=== PATIENT | female | born 1950 | race Caucasian/White ===

== ENCOUNTER 2016-09-24 13:05 | Day surgery (SDC) | payer MEDICARE, MEDICAID ==
[~2016-09-24] VITALS: Ht 167.6 cm; Wt 92.7 kg
[~2016-09-24 13:05] MED LIST: ACETAMINOPHEN500 M1 PO; ALBUTEROL2.5 MG/3 M INH; BAYER CHEWABLE81 MG PO; CARAFATE1 G PO; EZFE 200200 MG PO; FIBER THERAPY1368 GM PO; FISH OIL 1,0001 CA1 PO; FOLTX TABLET1 EACH PO; HUMALOG MIX 75/10 ML SC; HUMALOG MIX 75/10 ML SQ; HYDROCHLOROTH12.5 M1 PO; ISOSORBIDE MONO30 M1 PO; LANTUS INSULIN10 ML SC; MULTIPLE VITAMI1 TA1 PO; NITROSTAT0.4 MG SL; PEPCID40 MG PO; PLAVIX75 MG PO; POTASSIUM99 M1 PO; PRAVACHOL40 MG PO; PRILOSEC20 MG PO; PRINIVIL20 MG PO; SPIRIVA18 MCG INH; SYMBICORT 16010.2 GM INH
[2016-09-24] MEDS ORDERED: GABAPENTIN100 MG PO (13:29)
[2016-09-24] MEDS ORDERED: PHENERGAN25 M1 PO (13:30)
[2016-09-24] MEDS ORDERED: LASIX40 MG PO (13:30)
[2016-09-24] MEDS ORDERED: CHLOR-TRIMETON4 MG PO (13:32)
[2016-09-24] MEDS ORDERED: [UNRECOGNIZED DRUG - OTHER] PO (13:32)
[2016-09-24] MEDS ORDERED: KLONOPIN1 MG PO (13:33)
[2016-09-24] MEDS ORDERED: HYDROCODON-ACE1 EAC7 PO (13:34)
[2016-09-24 13:42] VITALS: BP 142/74; Ht 167.6 cm; Wt 92.7 kg
[2016-09-24 13:57] LABS: BASOPHILS 2.2 % (0.0-2.0); EOSINOPHILS 6.6 % (0-7); HEMATOCRIT 42.5 % (36.0-48.0); HEMOGLOBIN 13.7 g/dL (12-16); IMMATURE GRANULOCYTES 0.6 % (0-5); LYMPHOCYTES 31.3 % (15-50); MCH 30.1 pg (26.0-34.0); MCHC 32.2 g/dL (31.0-37.0); MCV 93.4 fL (80.0-100.0); MEAN PLATELET VOLUME 11.9 fL (7.4-10.4); MONOCYTES 11.2 % (2-11); NEUTROPHILS 48.1 % (40-80); RBC 4.55 10x6/uL (4.00-5.40); RDW 17.9 % (11.5-14.5); WBC 7.1 10x3/uL (4.8-10.8)
[2016-09-24 13:58] LABS: PLATELET COUNT 141 10x3/uL (130-400)
[2016-09-24 14:15] LABS: CALC OSMOLALITY 277 mosm/kg (275-300); CALCIUM 9.2 mg/dL (8.5-10.1); CARBON DIOXIDE 24.9 mmol/L (21.0-32.0); CHLORIDE - SERUM 104 mmol/L (98-107); CREATININE - SERUM 0.8 mg/dL (0.6-1.3); GLUCOSE 109 mg/dL (74-106); POTASSIUM - SERUM 3.8 mmol/L (3.5-5.1); SODIUM 139 mmol/L (136-145); UREA NITROGEN 9 mg/dL (7-18); eGFR NON AFRICAN AMERICAN 76 mL/min (90-120)
--- NOTE | 2016-09-24 15:00 | NUR ---
1430 BACK FROM EGD AWAKE AND HOB ELEVATED NO COS OF PAIN.
--- NOTE | 2016-09-24 15:02 | NUR ---
1430 [address]AK[address] IN FULL LIQUIDS. DR[address] REYES ROUNDED ON PATIENT.
--- NOTE | 2016-09-24 15:14 | NUR ---
151O TOLERATED FULL LIQUIDS, UP AND VOIDED WITH ASSISTANCE.
--- NOTE | 2016-09-24 15:35 | NUR ---
1532 IV DCD CATHETER INTACT. DISCHARGE INSTRUCTIONS GIVEN AND VERBALLY UNDERSTANDS, 1535 TO HOME VIA W/C WITH SPOUSE.
[2016-09-24 16:30] LABS: INR 1.06 (0.85-1.17); PROTIME 13.6 SECONDS (11.6-15.0)
--- NOTE | 2016-11-18 13:19 | OP ---
PATIENT NAME: KATHIA WILSON MEDICAL RECORD: [id number] :51 LOCATION:[facility] ADMISSION DATE: SURGEON: FARZANA REYES MD DATE OF OPERATION: 09/24/2016 EGD with Biopsy Report PROCEDURE: EGD with biopsy. SCOPE: An Olympus video gastroscope. MEDICATIONS: Per TIVA anesthesia. The patient received 120 mg of propofol for this procedure, O2 of 4 liters. INDICATION FOR THE PROCEDURE: Recent PET scan showing increased tumor in the distal esophageal area with increasing hypermetabolism extending over the distal few centimeters of the esophagus and into the GE junction. There is also the suggestion on this PET scan of a little more intraluminal thickening and nodularity in the upper portion of the area of abnormality which is also hypermetabolic. The patient is presenting today as there is concern for recurrent mass. She also has increased uptake in the celiac lymph nodes. 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 The patient agreed to chemotherapy, but deferred radiation and surgical intervention. Her oncologist is Dr. Torre who will receive a copy of this report as well as Dr. Marmolejo, to Dr. Lopez and her primary physician, Dr. Baker. FINDINGS: Informed consent was given. The patient was made comfortable with the above medications. After reaching an adequate level of sedation by slow IV push, the patient was placed on her left side. The endoscope was then advanced under direct visualization through the posterior pharyngeal area and advanced to the distal esophagus. In the mid esophageal area, a hemorrhagic mass was noted. A few very small biopsies were obtained. The patient does bleed very easily. She also had increased thickening and suggestion of a recurrent mass in the distal esophageal area, another set of biopsies were obtained. On entering the stomach, it was noted that moderate inflammation was noted throughout the stomach, but most pronounced at the antral area where biopsies were taken. No ulcers were appreciated. The duodenal bulb had inflammation. Biopsies were obtained. The wall was thickened as well as erythematous. The second portion of the duodenum had mild inflammation present. Biopsies were also taken in this area due to the history of diarrhea. The scope was then withdrawn. IMPRESSION: 1. Mild duodenitis in the second part of the duodenum, also with a history of diarrhea, biopsies obtained. 2. Duodenal bulb with some nodularity, increased erythema, edema and inflammation, biopsied. 3. Moderate enteritis. Biopsy obtained, looking for the presence of Helicobacter pylori. 4. Distal esophagus with increased erythema, edema, inflammation and what is felt to be the presence of increasing tumor growth, biopsied, some bleeding did occur during obtainment of the biopsies. OPERATIVE REPORT [id number] KATHIA WILSON 5. Mid esophageal area at 35 cm. An obvious mass is appreciated with shelf-like appearance. Biopsies obtained. This was hemorrhagic prior to biopsy. We watched this area carefully and the bleeding did appear to slow. PLAN: This information will be forwarded to Dr. Torre, Dr. Marmolejo, Dr. Lopez and Dr. Baker. It is fairly obvious that the patient does have recurrent tumor. We will place her on Carafate, which we will ask her to make into a slurry and she should take this 4 times a day. We will also provide a prescription for omeprazole at 20 mg in the morning and famotidine 20 mg at bedtime. No anti-inflammatory drugs please. TRANSINT:[id number] Voice Confirmation ID: [id number] DOCUMENT ID: [id number] FARZANA REYES MD at 1319 CC: ASTON MARMOLEJO MD, BETO TORRE MD, QUIN BAKER MD and TAZ,[id number] DICTATION DATE: 09/24/16 1420 DOG TRACK KENNEL MANAGER: 09/24/16 1854 [facility] 09/24/16 [id number] [place] [address]
== END 2016-09-24 15:35 | disposition home or self-care (01) ==
LOC: D.OPS 13:05
PROVIDERS: Anesthesiology
DX: C15.5 Malignant neoplasm of lower third of esophagus (principal); K22.70 Barrett's esophagus without dysplasia; K29.80 Duodenitis without bleeding; K52.9 Noninfective gastroenteritis and colitis, unspecified; K29.50 Unspecified chronic gastritis without bleeding

== ENCOUNTER 2017-02-09 08:06 | Day surgery (SDC) | payer MEDICARE, MEDICAID ==
[~2017-02-09] VITALS: Ht 167.6 cm; Wt 85.0 kg
--- NOTE | ~2017-02-09 | OP ---
PATIENT NAME: KATHIA WILSON MEDICAL RECORD: [id number] :52 LOCATION:[facility] ADMISSION DATE: SURGEON: RANDALL MOISE DO OPERATION DATE: 02/09/17 PROCEDURE: Esophagogastroduodenoscopy with biopsies. INDICATION: History of esophageal cancer, Porter's esophagus, dysphagia, pain in the esophagus. SCOPE: Olympus video gastroscope. MEDICATIONS: Propofol 150 milligrams IV per anesthesia. ESTIMATED BLOOD LOSS: Less than 2 mL. COMPLICATIONS: None. FINDINGS: Informed consent was given. The patient was made comfortable with the above medication. After reaching an adequate level of sedation by slow IV push, the patient was placed on her left side. The endoscope was then advanced under direct visualization through the mouth to the second portion of the duodenum. The upper and middle portions of the esophagus appeared normal. In the distal esophagus down to the GE junction, there was erythema and friability and likely esophageal adenocarcinoma tumor. The largest of this area started at approximately 37 cm from the incisors and extended down to approximately 40-41 cm. It invaded 25 to 50% of the circumference of the esophagus and encroached within the lumen approximately 50%. As stated above, it was friable. Two biopsies were taken, and a small amount of bleeding occurred. This did not require hemostasis and was stopping at the end of the procedure. The scope was advanced slightly further down into the esophagus, and there was another small focus at approximately 41 cm on the opposite wall. This site was probably about 6-8 mm in diameter and did not protrude into the lumen. The scope advanced into the stomach and retroflexed to view the cardia which did not appear to be involved. The fundus and body of the stomach appeared normal. The antrum and incisura appeared normal. The scope was advanced beyond the pylorus into the duodenum where the bulb and second portion of the duodenum appeared normal. The scope was withdrawn from the patient. The patient tolerated the procedure well, and there were no complications. IMPRESSIONS: 1. Increasing tumor burden of a previously diagnosed esophageal adenocarcinoma. 2. Dysphagia, secondary to this advanced tumor growth. PLAN/RECOMMENDATIONS: 1. Discharge home when recovery parameters are met. 2. Follow-up with oncology for further recommendations and planning. This adenocarcinoma has failed to respond adequately to chemotherapy alone. Radiation therapy should be reconsidered. Other palliative treatments that could be possible but would require a referral could include photodynamic therapy with radiation therapy or alone. 3. Until definitive therapy is undertaken, I would recommend eating more liquids and maintaining nutrition through supplemental diet such as protein shakes. If solids are to be eaten, they should be chewed thoroughly prior to swallowing. 4. Follow-up biopsy specimen results. 5. GI will be available for any assistance regarding further diagnostic workup or OPERATIVE REPORT [id number] KATHIA WILSON reevaluation of the esophageal adenocarcinoma. RANDALL MOISE DO CC: [id number] DICTATION DATE: 02/09/17 1300 FILM EDITOR SUPERVISOR: DM 02/09/17 1321 [facility] 02/09/17 [facility] [address] [place] [address]
[~2017-02-09 08:06] MED LIST changes: +CHLOR-TRIMETON4 MG PO; +GABAPENTIN100 MG PO; +HYDROCODON-ACE1 EAC7 PO; +KLONOPIN1 MG PO; +LASIX40 MG PO; +PHENERGAN25 M1 PO; +[UNRECOGNIZED DRUG - OTHER] PO
[2017-02-09 10:59] VITALS: BP 133/85; Ht 167.6 cm; Wt 85.0 kg
[2017-02-09 10:59] LABS: BASOPHILS 1.6 % (0-2); EOSINOPHILS 6.6 % (0-7); HEMATOCRIT 41.3 % (36.0-48.0); HEMOGLOBIN 13.2 g/dL (12-16); IMMATURE GRANULOCYTES 0.3 % (0-5); LYMPHOCYTES 35.5 % (15-50); MCH 30.8 pg (26.0-34.0); MCV 96.3 fL (80.0-100.0); MEAN PLATELET VOLUME 11.6 fL (7.4-10.4); MONOCYTES 8.4 % (2-11); NEUTROPHILS 47.6 % (40-80); RBC 4.29 10x6/uL (4.00-5.40); RDW 17.3 % (11.5-14.5); WBC 3.8 10x3/uL (4.8-10.8)
[2017-02-09 11:06] LABS: PLATELET COUNT 84 10x3/uL (130-400)
[2017-02-09 11:07] LABS: CALCIUM 9.2 mg/dL (8.5-10.1); CARBON DIOXIDE 27.8 mmol/L (21.0-32.0); CREATININE - SERUM 0.9 mg/dL (0.6-1.3); POTASSIUM - SERUM 3.8 mmol/L (3.5-5.1)
[2017-02-09 11:08] LABS: APTT 32.5 SECONDS (22.8-39.4); INR 1.07 (0.85-1.17); PROTIME 13.7 SECONDS (11.6-15.0)
[2017-02-09 11:32] LABS: PLATELET ESTIMATE DECREASED
--- NOTE | 2017-02-09 12:34 | NUR ---
1225 FULL LIQUID TRAY GIVEN
--- NOTE | 2017-02-09 13:04 | NUR ---
1250 DC IV CATHETER TIP INTACT VALENTINO WELL 1300 PT DC VIA WC ESCORTED OUT W/ DRIVING
== END 2017-02-09 13:00 | disposition home or self-care (01) ==
LOC: D.RAD 08:06 → D.OPS 08:06
PROVIDERS: Anesthesiology
DX: C15.9 Malignant neoplasm of esophagus, unspecified (principal); R13.10 Dysphagia, unspecified; E11.9 Type 2 diabetes mellitus without complications; I10 Essential (primary) hypertension; I25.10 Atherosclerotic heart disease of native coronary artery without angina pectoris; F17.200 Nicotine dependence, unspecified, uncomplicated; J44.9 Chronic obstructive pulmonary disease, unspecified; K21.9 Gastro-esophageal reflux disease without esophagitis; Z01.812 Encounter for preprocedural laboratory examination

== ENCOUNTER 2017-03-10 11:14 | Inpatient (IN) | payer MEDICARE, MEDICAID ==
[~2017-03-10] VITALS: Ht 167.6 cm; Wt 80.7 kg
--- NOTE | 2017-03-10 11:30 | NUR ---
PT REC'D TO ROOM VIA WC. ACCOMPANIED BY HOSPITAL STAFF AND FAMILY. AAOX4. RATING CURRENT PAIN ALL OVER 5/10. WILL REASSESS. PT WEARING SURGICAL MASK AND WHEN ASKED WHY STATES, "MY COUNTS ARE REALLY LOW." L CHEST PORT TO BE ACCESSED BY RN. REGULAR HEART RATE AND RHYTHM. LUNG SOUNDS CLEAR AND EQUAL BILAT. BOWEL SOUNDS HIGH PITCHED AND HYPOACTIVE AT ALL 4 QUADS. BLE DARKENED IN COLOR. PT STATES, "THATS BEEN LIKE THAT FOR A FEW YEARS." PT HAS SCRATCHES AND ABRASIONS TO BUE. STATES IT IS JUST FROM SCRATCHING. HX OBTAINED AND MED LIST UPDATED. BED LOW, CALL LIGHT IN REACH, FAMILY AT BEDSIDE, DENIES NEEDS. CPOC.
[2017-03-10 12:46] LABS: HEMATOCRIT 36.4 % (36.0-48.0); MCH 30.6 pg (26.0-34.0); MCV 92.9 fL (80.0-100.0); MEAN PLATELET VOLUME 11.2 fL (7.4-10.4); PLATELET COUNT 149 10x3/uL (130-400); RBC 3.92 10x6/uL (4.00-5.40); RDW 15.8 % (11.5-14.5); WBC 3.2 10x3/uL (4.8-10.8)
[2017-03-10 12:59] VITALS: BP 80/47
[2017-03-10 13:01] LABS: BASOPHILS 1 % (0-2); EOSINOPHILS 6 % (0-7); LYMPHOCYTES 64 % (15-50); MONOCYTES 3 % (2-11); NEUTROPHILS 26 % (40-80); PLATELET ESTIMATE NORMAL
[2017-03-10 13:13] LABS: ALBUMIN 2.9 g/dL (3.4-5.0); ANION GAP 10.3 mmol/L (8-16); BILIRUBIN - TOTAL 0.34 mg/dL (0.2-1.3); CALCIUM 9.1 mg/dL (8.5-10.1); CARBON DIOXIDE 26.7 mmol/L (21.0-32.0); CREATININE - SERUM 1.7 mg/dL (0.6-1.3); PROTEIN - SERUM 7.3 g/dL (6.4-8.2)
[2017-03-10 13:42] VITALS: BP 87/51
[2017-03-10 14:21] VITALS: BP 87/51; BMI 28.8
[2017-03-10 16:58] VITALS: BP 90/58
--- NOTE | 2017-03-10 19:45 | NUR ---
RECIEVED SHIFT REPORT. PT IS LYING IN BED. ALERT AND ORIENTED AND ABLE TO VERBALIZE NEEDS. IV IS PATENT AND FLUIDS ARE RUNNING PER ORDER. PT IS AMBULATORY BUT WAS INSTRUCTED TO CALL FOR ANY ASSISTANCE NEEDED. PT STATES PAIN IS 2/10. ISOLATION PRECAUTIONS IN PLACE. NO NEEDS ARE VERBALIZED AT THIS TIME. WILL CONTINUE TO MONITOR. SIDE RAILS ARE UP X 2. BED IS IN LOWEST POSITION. CALL LIGHT IS WITHIN REACH.
[2017-03-10 20:00] VITALS: BP 83/48
--- NOTE | 2017-03-10 22:26 | NUR ---
SHIFT ASSESSMENT COMPLETED. NIHGT MEDS GIVEN WITH NO PROBLEMS. SCHEDULED LANTUS HELD DUE TO PT STATING IF SHE TOOK IT HER BLOOD SUGAR WOULD DROP. OJNS=[id number]. PT C/O PAIN 10/03. ADMINISTERED PRESCRIBED PRN NORCO PER ORDER. NO FURTHER NEEDS. WILL MONITOR. SIDE RAILS X 2. BED LOW. CALL LIGHT IN REACH.
[2017-03-11] VITALS: BP 74/41
[2017-03-11 05:35] LABS: WBC 3.6 10x3/uL (4.8-10.8)
[2017-03-11 05:36] LABS: BASOPHILS 0.6 % (0-2); EOSINOPHILS 2.2 % (0-7); HEMATOCRIT 33.4 % (36.0-48.0); HEMOGLOBIN 10.9 g/dL (12-16); IMMATURE GRANULOCYTES 0.3 % (0-5); LYMPHOCYTES 37.5 % (15-50); MCH 30.4 pg (26.0-34.0); MCHC 32.6 g/dL (31.0-37.0); MCV 93.3 fL (80.0-100.0); MEAN PLATELET VOLUME 11.8 fL (7.4-10.4); MONOCYTES 8.5 % (2-11); NEUTROPHILS 50.9 % (40-80); PLATELET COUNT 138 10x3/uL (130-400); RBC 3.58 10x6/uL (4.00-5.40); RDW 15.7 % (11.5-14.5)
[2017-03-11 06:00] LABS: ALBUMIN 2.4 g/dL (3.4-5.0); ANION GAP 9.7 mmol/L (8-16); BILIRUBIN - TOTAL 0.25 mg/dL (0.2-1.3); CALCIUM 8.6 mg/dL (8.5-10.1); CARBON DIOXIDE 25.7 mmol/L (21.0-32.0); POTASSIUM - SERUM 4.4 mmol/L (3.5-5.1); PROTEIN - SERUM 6.2 g/dL (6.4-8.2)
[2017-03-11 06:01] LABS: CREATININE - SERUM 1.2 mg/dL (0.6-1.3)
--- NOTE | 2017-03-11 07:40 | NUR ---
PT AOX4 RESP EVEN AND NONLABORED PT DENIES NEEDS AT THIS TIME IV TO LEFT SUBCLAVIAN PORT PATENT AND INTACT AT THIS TIME SRX2 BED AT LOWEST SETTING CALL LIGHT WILL CONTINUE TO MONITOR
--- NOTE | 2017-03-11 08:00 | NUR ---
PT AOX4 RESP EVEN AND NONLABORED PT DENIES NEEDS AT THIS TIME IV TO LEFT SUBCLAVIAN PORT PATENT AND INTACT AT THIS TIME SRX2 BED AT LOWEST SETTING CALL LIGHT WITHIN REACH WILL CONTINUE TO MONITOR
[2017-03-11 09:52] VITALS: BP 99/58
[2017-03-11 11:11] VITALS: Ht 167.6 cm; Wt 80.7 kg
[2017-03-11 13:07] VITALS: BP 89/59
[2017-03-11 16:41] VITALS: BP 82/42
[2017-03-11 19:00] VITALS: BP 94/48
--- NOTE | 2017-03-11 21:02 | NUR ---
SHIFT ASSESSMENT COMPLETED. NIGHT MEDS GIVEN WITH NO PROBLEMS. SCHEDULED LANTUS HELD FOR [id number] PER PT REQUEST. NO NEEDS ARE VOICED. WILL MONITOR. SIDE RAILS X 2. BED LOW. CALL LIGHT IN REACH.
[2017-03-12] VITALS: BP 98/57
[2017-03-12 04:00] VITALS: BP 105/63
[2017-03-12 05:51] LABS: BASOPHILS 0.3 % (0-2); EOSINOPHILS 2.4 % (0-7); HEMATOCRIT 34.4 % (36.0-48.0); HEMOGLOBIN 11.1 g/dL (12-16); IMMATURE GRANULOCYTES 1.9 % (0-5); LYMPHOCYTES 28.2 % (15-50); MCH 29.9 pg (26.0-34.0); MCHC 32.3 g/dL (31.0-37.0); MCV 92.7 fL (80.0-100.0); MEAN PLATELET VOLUME 12.1 fL (7.4-10.4); MONOCYTES 10.3 % (2-11); NEUTROPHILS 56.9 % (40-80); PLATELET COUNT 129 10x3/uL (130-400); RBC 3.71 10x6/uL (4.00-5.40)
[2017-03-12 05:56] LABS: WBC 5.8 10x3/uL (4.8-10.8)
[2017-03-12 06:09] LABS: ALBUMIN 2.5 g/dL (3.4-5.0); ANION GAP 11.4 mmol/L (8-16); BILIRUBIN - TOTAL 0.29 mg/dL (0.2-1.3); CALCIUM 8.8 mg/dL (8.5-10.1); CARBON DIOXIDE 24.6 mmol/L (21.0-32.0); CREATININE - SERUM 1.1 mg/dL (0.6-1.3); PROTEIN - SERUM 6.3 g/dL (6.4-8.2)
--- NOTE | 2017-03-12 07:42 | NUR ---
PT AOX4 RESP EVEN AND NONLABORED IV TO LEFT SUBCLAVIAN PATENT AND INTACT PT DENIES NEEDS AT THIS TIME SRX2 BED AT LOWEST SETTING CALL LIGHT WITHIN REACH WILL CONTINUE TO MONITOR AT BEDSIDE
[2017-03-12 08:00] VITALS: BP 101/69
--- NOTE | 2017-03-12 11:36 | NUR ---
pt did not allow port dressing change yesterday-"did not feel good"- allowed to be changed today per policy. dated and initaled.
--- NOTE | 2017-03-12 13:01 | NUR ---
PT LEFT AGAINST MEDICAL ADVICE AT THIS TIME WITH
== END 2017-03-12 13:02 | disposition left against medical advice (07) | DRG 809 ==
LOC: D.MS 11:14
PROVIDERS: ADMIT Internal Medicine Hematology & Oncology
DX: D70.3 Neutropenia due to infection (principal); K52.1 Toxic gastroenteritis and colitis; C16.0 Malignant neoplasm of cardia; K56.7 Ileus, unspecified; K12.31 Oral mucositis (ulcerative) due to antineoplastic therapy; T45.1X5A Adverse effect of antineoplastic and immunosuppressive drugs, initial encounter; I95.9 Hypotension, unspecified; E86.0 Dehydration; E11.40 Type 2 diabetes mellitus with diabetic neuropathy, unspecified; Z79.4 Long term (current) use of insulin; E11.51 Type 2 diabetes mellitus with diabetic peripheral angiopathy without gangrene; F51.04 Psychophysiologic insomnia; F32.9 Major depressive disorder, single episode, unspecified

== ENCOUNTER → 2017-06-04 10:27 | Outpatient (CLI) | payer MEDICARE, MEDICAID ==
[2017-03-11 11:11] VITALS: BMI 28.7
== END | disposition home or self-care (01) ==
LOC: D.RAD 10:27
DX: C15.5 Malignant neoplasm of lower third of esophagus (principal)

== ENCOUNTER 2017-10-06 07:20 | Outpatient (CLI) | payer MEDICARE, MEDICAID ==
[~2017-10-06] VITALS: Ht 167.6 cm; Wt 77.3 kg
--- NOTE | ~2017-10-06 | HEMODYNAMI ---
PATIENT:KATHIA WILSON MEDICAL RECORD: [id number] : 52 LOCATION:[facility] ADMISSION DATE: 10/06/17 Generatedon:10/06/20179:33 Patient name: KATHIA WILSON Patient #: [id number] SSN: [id number] : 1950 Date of study: 10/06/2017 Page: Of Hemodynamic Procedure Report Patient Data Patient Demographics Procedure consent was obtained First Name: KATHIA Gender: Female Last Name: KATIE : 1950 [facility] Initial: J Age: 67 year(s) Patient #: [id number] Race: SSN: [id number] Additional ID: [id number] Contact details Address: [address] [place] [address] State: [place] City: [place] Zip code: [address] Admission Admission Data Admission Date: 10/06/2017 Admission Time: 7:20 Arrival Date: 10/06/2017 Arrival Time: 8:00 Admit Source: Other Insurance Payor: Medicare Height (in.): 66 BSA: 1.89 (m2) Height (cm.): 167.64 BMI: 28.41 (kg/m2) Weight (lbs.): 176 Weight (kg.): 79.83 Procedure Procedure Types Cath Procedure Diagnostic Procedure [facility] w/Coronaries Sedation Charges Moderate Sedation up to 15 minutes PCI Procedure Coronary Stent Coronary Stent Initial Procedure Description Procedure Date Procedure Date: 10/06/2017 Procedure Start Time: 9:16 Procedure End Time: 9:32 Procedure Staff Name Function Genaro Lopez MD Performing Physician Nimco Gallegos RT Monitor Gretchen Rod RT Scrub Lindsey Krishnamurthy RN Nurse Procedure Data Cath Procedure Fluoroscopy Diagnostic fluoroscopy Total fluoroscopy Time: 3.8 time: 3.8 min min Diagnostic fluoroscopy Total fluoroscopy dose: 834 dose: 834 mGy mGy Contrast Material Contrast Material Type Amount (ml) Isovue 300 68 Entry Location Entry Primary Successful Side Size Upsize Upsize Entry Closure Succes sful Closure Location (Fr) 1 (Fr) 2 (Fr) Remarks Device Remarks Femoral Right 5 Fr 6 Fr Exoseal artery Short Estimated blood loss: 5 ml Diagnostic catheters Device Type Used For End Catheter Placement MULTIPACK Pigtail 5 Fr LV Angiography catheter MULTIPACK JL 4.0 5Fr Left Coronary catheter Angiography MULTIPACK 3DRC 5Fr Right Coronary catheter Angiography Procedure Complications No complications Procedure Medications Medication Administration Route Dosage Oxygen NC 2 l/min Lidocaine 2% added to field 20 Heparin Flush Bag added to field 2 bags (1000units/500ml NS) 0.9% NaCl I.V. 100 ml/hr Versed I.V. 1 mg Fentanyl I.V. 50 mcg Versed I.V. 1 mg Fentanyl I.V. 50 mcg Heparin Bolus I.V. 4000 units Integrilin (Bolus I.V. 6.8 ml 2mg/ml) Versed I.V. 1 mg Plavix P.O. 600 mg Hemodynamics Rest BSA: 1.89 (m2) O2 Consumption: Estimated: 174.66 (ml/min) O2 Consumption indexed : Estimated:92.41 (ml/min/m) Heart Rate: 68 (bpm) Pressure Samples Time Site Value (mmHg) Purpose Heart Use Rate(bpm) 9:18 LV 93/6,25 Snapshot 69 Snapshots Pre Cath Intra NCS Post Cath Vital Signs Time Heart Resp SPO2 etCO2 NIBP (mmHg) Rhythm Pain Sedation Rate (ipm) (%) (mmHg) Status Level (bpm) 8:59:41 64 16 100 27.9 122/69(108) NSR 0 (11) 10(A) , No pain 9:03:51 63 20 100 34.7 104/68(86) NSR 0 (11) 10(A) , No pain 9:07:57 65 20 99 21.1 105/63(91) NSR 0 (11) 10(A) , No pain 9:12:02 69 13 96 11.3 101/62(76) NSR 0 (11) 9(A) , No pain 9:16:08 70 14 97 19.6 90/58(67) NSR 0 (11) 9(A) , No pain 9:20:08 72 15 95 30.9 95/65(82) NSR 0 (11) 9(A) , No pain 9:24:10 73 14 94 27.9 95/62(78) NSR 0 (11) 9(A) , No pain 9:28:13 70 14 97 0 102/61(78) NSR 0 (11) 10(A) , No pain 9:32:19 73 16 97 20.3 98/58(84) NSR 0 (11) 10(A) , No pain Medications Time Medication Route Dose Verified Delivered Reason Notes Effectiveness by by 9:00:54 Oxygen NC 2 Genaro Buffie used for l/min John Krishnamurthy RN procedure 9:01:01 Lidocaine 2% added 20ml Genaro Genaro for local to vial John Lopez MD anesthetic field 9:01:10 Heparin Flush added 2 Genaro Genaro used for Bag to bags John Lopez MD procedure (1000units/500ml field NS) 9:01:19 0.9% NaCl I.V. 100 Genaro Buffie Per physician ml/hr John Krishnamurthy RN 9:07:44 Versed I.V. 1 mg Genaro Portillo for sedation John Krishnamurthy RN 9:07:50 Fentanyl I.V. 50 Genaro Portillo for sedation mcg John Krishnamurthy RN 9:19:07 Versed I.V. 1 mg Genaro Alanisie for sedation John Krishnamurthy RN 9:19:10 Fentanyl I.V. 50 Genaro Alanisie for sedation mcg John Krishnamurthy RN 9:22:12 Heparin Bolus I.V. 4000 Genaro Alanisie for verifie d units John Krishnamurthy RN anticoagulation with dr lopez 9:24:22 Integrilin I.V. 6.8 Genaro Portillo for wasted (Bolus 2mg/ml) ml John Krishnamurthy RN antiplatelet 3.2 ml therapy of vial 9:27:25 Versed I.V. 1 mg Genaro Alanisie for sedation John Krishnamurthy RN 9:32:39 Plavix P.O. 600 Genaro Portillo for mg John Krishnamurthy RN antiplatelet therapy Procedure Log Time Note 8:31:24 Informed consent obtained and on chart 8:31:26 Admit Source: Other 8:31:56 Diagnostic Cath status Elective 8:31:57 Time tracking: Regular hours 8:32:00 Plan of Care:Hemodynamics will remain stable., Cardiac rhythm will remain stable., Comfort level will be maintained., Respiratory function will remain adequate., Patient/ family verbilizes understanding of procedure., Procedure tolerated without complication., Recovers from procedure without complications.. 8:34:29 H&P Date Dictated: 09/14/2017 Within 30 days and on chart., H&P Addendum completed by physician on day of procedure. (MUST COMPLETE FOR ALL OUTPATIENTS). 8:44:58 Gretchen Marcel RT(R) sent for patient. Start room use. 8:50:47 Patient received from Pre/Post Procedure Room to CCL 2 Alert and oriented. Tansferred to table in Supine position. 8:50:50 Warm blankets applied, and tita hugger turned on for patient comfort. 8:50:51 Correct patient and procedure confirmed by team. 8:50:52 ECG and BP/O2 sat monitors applied to patient. 8:58:35 Baseline sample Acquired. 8:58:35 Vital chart was started 8:58:49 Baseline sample Acquired. 8:58:54 Rhythm: sinus rhythm 8:58:55 Full Disclosure recording started 8:58:57 Pre-procedure instructions explained to patient. 8:58:57 Pre-op teaching completed and patient verbalized understanding. 8:58:58 Family in waiting room. 8:59:00 Patient NPO since Midnight. 8:59:02 Is the patient allergic to Iodine/contrast media? No. 8:59:03 Was the patient premedicated? No 8:59:50 Is patient on blood thinner?No 8:59:53 Patient diabetic? Yes. 8:59:54 If diabetic: On Metformin? No 8:59:58 Previous problem with sedation/anesthesia? No ? 9:00:09 Snore? Yes 9:00:10 Sleep apnea? Yes 9:00:11 Deviated septum? No 9:00:19 Opens mouth fully? Yes 9:00:19 Sticks out tongue? Yes 9:00:33 Airway obstruction? Yes copd, asthma, emphysema 9:00:42 Dentures? Yes out 9:00:54 Oxygen 2 l/min NC was administered by Lindsey Krishnamurthy RN; used for procedure; 9:00:54 Pre procedure: right dorsailis pedis pulse 1+ Palpable, but thready & weak; easily obliterated 9:00:55 Pre procedure: left dorsailis pedis pulse 1+ Palpable, but thready & weak; easily obliterated 9:00:57 Patient pain scale 0/10 ?. 9:01:01 Lidocaine 2% 20ml vial added to field was administered by Genaro Lopez MD; for local anesthetic; 9:01:03 IV patent on arrival in left forearm with 0.9% NaCl at [facility]. 9:01:06 Lab results completed and on chart. 9:01:10 Heparin Flush Bag (1000units/500ml NS) 2 bags added to field was administered by Genaro Lopez MD; used for procedure; 9:01:11 Right groin area was prepped with chlora-prep and draped in sterile fashion 9::13 Alarms reviewed by R. N. 9::13 Sharps counted by scrub and verified by R.N. 9:01:19 0.9% NaCl 100 ml/hr I.V. was administered by Lindsey Krishnamurthy RN; Per physician; 9:06:33 Arrival Date: 10/06/2017 8:00:00 AM 9:06:45 Insurance Payor : Medicare 9:06:51 Patient Height : 66 inches 9:06:56 Patient Weight : 176 lbs 9:06:57 Physician arrived 9:06:58 --------ALL STOP TIME OUT------ 9:06:58 Final Timeout: patient, procedure, and site verified with staff and physician. All members of the team are in agreement. 9:07:00 Right groin site verified by team. 9:07:03 Physical assessment completed. ASA score P 2 - A patient with mild systemic disease as per Genaro Lopez MD. 9:07:06 Sedation plan: IV Moderate Sedation Medication:Versed, Fentanyl 9:07:13 Use device set Femoral Dx 9:07:14 ACIST Syringe (95396) opened to sterile field. 9:07:15 Bag Decanter (2002) opened to sterile field. 9:07:15 Medline Cath Pack ([id number]) opened to sterile field. 9:07:16 SHEATH 5FR [place] (YCF779) opened to sterile field. 9:07:16 DIAGNOSTIC WIRE .035 260cm J wire (108061) opened to sterile field. 9:07:17 ACIST Hand Control (02817) opened to sterile field. 9:07:18 ACIST Manifold (82162) opened to sterile field. 9:07:18 DIAGNOSTIC Multipack 5Fr catheter set ([id number]) opened to sterile field. 9:07:19 Tegaderm 4 x 4 (1626W) opened to sterile field. 9:07:44 Versed 1 mg I.V. was administered by Lindsey Krishnamurthy RN; for sedation; 9:07:50 Fentanyl 50 mcg I.V. was administered by Lindsey Krishnamurthy RN; for sedation; 9:16:41 Procedure started. 9:16:44 Local anesthetic to right femoral artery with Lidocaine 2% by Genaro Lopez MD.INITIAL ACCESS ONLY 9:17:02 A 5 Fr sheath was inserted into the Right Femoral artery 9:17:15 Zero performed for pressure channel P1 9:17:30 A MULTIPACK Pigtail 5 Fr catheter was advanced over the wire and used for LV Angiography. 9:18:28 LV hemodynamics recorded. 9:18:29 LV gram done using DAILY 9:18:35 Injector settings: Ml/sec: 5, Volume: 15, 9:19:07 Versed 1 mg I.V. was administered by Lindsey Krishnamurthy RN; for sedation; 9:19:10 Fentanyl 50 mcg I.V. was administered by Lindsey Krishnamurthy RN; for sedation; 9:19:11 EF : 55 % 9:19:14 Catheter removed. 9:19:19 A MULTIPACK JL 4.0 5Fr catheter was advanced over the wire and used for Left Coronary Angiography. 9:20:12 LCA angiography performed. 9:20:15 Injector settings: Ml/sec: 3, Volume: 6, 9:20:44 Catheter removed. 9:20:48 A MULTIPACK 3DRC 5Fr catheter was advanced over the wire and used for Right Coronary Angiography. 9:21:33 RCA angiography performed. 9:21:58 Injector settings: Ml/sec: 3, Volume: 6, 9:22:00 Catheter removed. 9:22:02 Proceeding to intervention. 9:22:03 Sheath upsized to a 6 Fr Short. 9:22:04 6 Fr xblad 3.5 guide catheter was inserted over the wire 9:22:12 Heparin Bolus 4000 units I.V. was administered by Lindsey Krishnamurthy RN; for anticoagulation; verified with dr lopez 9::47 SHEATH 6FR [place] (COU107) opened to sterile field. 9:22:48 INFLATOR Merit Rgpak (FI9391) opened to sterile field. 9:22:48 CHOICE PT Extra Support 182cm wire ([id number]) opened to sterile field. 9:23:53 GUIDE 6FR XBLAD 3.5 catheter ([id number]) opened to sterile field. 9:24:22 Integrilin (Bolus 2mg/ml) 6.8 ml I.V. was administered by Lindsey Krishnamurthy RN; for antiplatelet therapy; wasted 3.2 ml of vial 9:25:55 Inflation Number: 1 A INTEGRITY RX 3.5 x 12 stent ([id number]) was prepped and advanced across the Mid LAD. The stent was deployed at 21 DEMETRIUS for 0:10 (min:sec). 9:26:21 Inflation number: 2 The stent balloon was then re-inflated across the Mid LAD to 23 DEMETRIUS for 0:10 (min:sec). 9:27:12 Stent catheter was removed intact over wire. 9:27:25 Versed 1 mg I.V. was administered by Lindsey Krishnamurthy RN; for sedation; 9:27:59 Inflation number: 3 A NC EUPHORA 3.5 x 8 balloon ([id number]) was prepped and advanced across the Mid LAD, then inflated to 23 DEMETRIUS for 0:10 (min:sec). 9:28:57 Balloon removed over the wire. 9:29:41 Inflation number: 4 A NC EUPHORA 4.0 x 12 balloon ([id number]) was prepped and advanced across the Mid LAD, then inflated to 23 DEMETRIUS for 0:10 (min:sec). 9:30:11 Balloon removed over the wire. 9:30:12 Wire removed. 9:30:13 Guide catheter removed. 9:30:24 EXOSEAL 6Fr (EX600) opened to sterile field. 9:30:35 Sheath removed intact; hemostasis achieved with Exoseal to the Right Femoral artery. 9:30:37 Procedure ended.(Physican Out) :31:23 Fluoroscopy time 03.80 minutes. :31:27 Fluoroscopy dose: 834 mGy 9:31:27 Flurop Dose total: 834 9:31:31 Contrast amount:Isovue 300 68ml. 9:31:32 Sharps counted by scrub and verified by R.N. 9:31:34 Insertion/operative site no bleeding no hematoma. 9:31:36 Post-op/insertion site Right Femoral artery dressed using a 4 x 4 and Tegaderm. 9:31:39 Post right femoral artery:stable 9:31:41 Post Procedure Pulses reassessed and unchanged 9:31:43 Post procedure rhythm: unchanged. 9:31:45 Estimated blood loss: 5 ml 9:31:47 Post procedure instruction explained to patient.Patient verbalizes understanding. 9:31:47 Patient needs reinforcement of post procedure teaching. 9:32:12 Procedure type changed to Cath procedure, Diagnostic procedure, LHC, LHC w/Coronaries, Sedation Charges, Moderate Sedation up to 15 minutes, PCI procedure, Coronary Stent, Coronary Stent Initial 9:32:13 Procedure and supply charges have been captured, reviewed, submitted and are correct. 9:32:17 Procedure Complication : No complications 9:32:19 Vital chart was stopped 9:32:20 See physician's report for complete and final results. 9:32:21 Report given to Pre/Post Procedure Room. 9:32:24 Patient transfered to Pre/Post Procedure Room with Stretcher. 9:32:27 Procedure ended. 9:32:27 Full Disclosure recording stopped 9:32:35 ACC-PCI Only Patient was given prescriptions, or instructed by Geanro Lopez MD to start/continue the following medications upon discharge: Plavix 9:32:36 End room use (Document Last) 9:32:39 Plavix 600 mg P.O. was administered by Lindsey Krishnamurthy RN; for antiplatelet therapy; Intervention Summary Intervention Notes Time ActionType Lesion and Equipment Action# Pressure Duration Attributes Used 9:25:55 Place stent Mid LAD INTEGRITY RX 1 21 00:10 3.5 x 12 stent ([id number]) 9:26:21 Reinflate Mid LAD INTEGRITY RX 2 23 00:10 stent 3.5 x 12 balloon stent ([id number]) 9:27:59 Inflate Mid LAD NC EUPHORA 3 23 00:10 balloon 3.5 x 8 balloon ([id number]) 9:29:41 Inflate Mid LAD NC EUPHORA 4 23 00:10 balloon 4.0 x 12 balloon ([id number]) Device Usage Item Name Manufacture Quantity Catalog Number Hospital Part Current Mini mal Lot# / Charge Number Stock Stock Serial# Code ACIST Acist 1 27799 559198 660076 794489 20 Syringe Medical (06444) Systems Inc Bag Decanter Microtek 1 2001S 558357 06258 075845 5 (2001S) Medical Inc. Medline Cath Cardinal 1 [id number] 171919 10741 263707 5 Pack Health ([id number]) SHEATH 5FR Terumo 1 EXX952 385538 930983 293109 40 [place] (JJW766) DIAGNOSTIC St Shaheed 1 339626 723685 888527 651294 30 WIRE .035 260cm J wire (319950) ACIST Hand Acist 1 47373 658753 632276 971889 5 Control Medical (94936) Systems Inc ACIST Acist 1 28819 590076 155191 573044 5 Manifold Medical (84316) Systems Inc DIAGNOSTIC Cardinal 1 LW6436 955698 12948 896733 30 Multipack Health 5Fr catheter set (LI2084) Tegaderm 4 x 3M 1 1626W 107871 936292 080437 5 4 (1626W) MULTIPACK Cardinal 1 753085 5 Pigtail 5 Fr Health catheter MULTIPACK JL Cardinal 1 933373 5 4.0 5Fr Health catheter MULTIPACK Cardinal 1 710700 5 3DRC 5Fr Health catheter SHEATH 6FR Terumo 1 MLW385 617048 806150 586618 40 [place] (IGD227) INFLATOR [place] [address] KE8105 888676 477199 717489 [address] [facility] (PG2068) CHOICE PT Valmy 1 [id number] 799942 333784 752621 5 Extra Scientific Support 182cm wire (9348273P7) GUIDE 6FR Cardinal 1 [id number] 186541 501735 606720 10 XBLAD 3.5 Health catheter (99388966) INTEGRITY RX Medtronic 1 [id number] 467427 875691 717042 5 [id number] 3.5 x 12 stent ([id number]) NC EUPHORA Medtronic 1 [id number] 634090 873399 736695 1 [id number] 3.5 x 8 balloon ([id number]) NC EUPHORA Medtronic 1 [id number] 193656 291834 580280 1 [id number] 4.0 x 12 balloon ([id number]) EXOSEAL 6Fr Cardinal 1 EX600 324107 861715 419510 10 (EX600) Health Signature Audit [place] Stage Time Signature Unsigned Intra-Procedure 10/06/2017 Gretchen Marcel 9:33:46 AM RT(R) Signatures Monitor : Nimco Gallegos Signature : RT Date : Time : [place] [address] [place] [address]
--- NOTE | ~2017-10-06 | OP ---
PATIENT NAME: KATHIA WILSON MEDICAL RECORD: [id number] :52 LOCATION:D.CAT ADMISSION DATE: SURGEON: TOSIN MCGHEE MD DATE OF OPERATION: 10/06/2017 PROCEDURES: 1. PTCA stent LAD. 2. Left heart catheterization. 3. Selective coronary angiography. 4. Left ventriculogram. INDICATION: Angina and coronary artery disease. PROCEDURE IN DETAIL: After informed consent was obtained and after a detailed explanation of the risks, benefits as well as alternative therapies, the patient elected to proceed with angiogram and angioplasty. The right femoral area was prepped and draped in normal sterile fashion. Right femoral artery was cannulated via modified Seldinger technique with placement of 6-[place] Zealander sheath. All catheters exchanged through this sheath. FINDINGS: Left ventriculogram was performed in standard 30-degree DAILY view and reveals good cardiac wall motion throughout all segments. Overall ejection fraction is estimated at 55% to 60%. SELECTIVE CORONARY ANGIOGRAPHY: 1. Left main is with no significant angiographic disease. 2. Left anterior descending has 80% stenosis in the mid vessel, it is heavily calcified. 3. Left circumflex has moderate irregularities, but no flow-limiting stenosis. 4. Right coronary artery has moderate irregularities, but no flow-limiting stenosis. PTCA STENT OF THE LAD: The stent used was a 3.5 x 12 mm Integrity. Post-stent dilatation made with 4.0 high pressure balloon to 23 atmospheres. Result was 0% residual stenosis. OVERALL IMPRESSION: Successful percutaneous transluminal coronary angioplasty stent of the left anterior descending going from 80% initial stenosis to 0% residual stenosis. TRANSINT:[id number] Voice Confirmation ID: [id number] DOCUMENT ID: [id number] TOSIN MCGHEE MD at 1202 CC: [id number] DICTATION DATE: 10/06/17 0939 TRAINMAN: 10/06/17 1006 DEP CLI 10/06/[address] [address]
[2017-10-06] MEDS ORDERED: NOVOLIN 70/30 110 ML SC (07:48)
[2017-10-06 07:57] VITALS: BP 131/75; Ht 167.6 cm; Wt 77.3 kg
[2017-10-06 07:57] LABS: BASOPHILS 0.5 % (0-2); EOSINOPHILS 9.2 % (0-7); HEMATOCRIT 38.2 % (36.0-48.0); HEMOGLOBIN 12.1 g/dL (12-16); IMMATURE GRANULOCYTES 0.3 % (0-5); LYMPHOCYTES 19.8 % (15-50); MCH 27.9 pg (26.0-34.0); MCHC 31.7 g/dL (31.0-37.0); MCV 88.2 fL (80.0-100.0); MEAN PLATELET VOLUME 11.8 fL (7.4-10.4); MONOCYTES 7.8 % (2-11); NEUTROPHILS 62.4 % (40-80); RBC 4.33 10x6/uL (4.00-5.40); RDW 17.4 % (11.5-14.5); WBC 9.8 10x3/uL (4.8-10.8)
[2017-10-06 07:58] LABS: PLATELET COUNT 202 10x3/uL (130-400)
[2017-10-06 08:52] LABS: ANION GAP 11.9 mmol/L (8-16); CALCIUM 9.5 mg/dL (8.5-10.1); CARBON DIOXIDE 28.6 mmol/L (21.0-32.0); CREATININE - SERUM 0.9 mg/dL (0.6-1.3); POTASSIUM - SERUM 3.5 mmol/L (3.5-5.1)
[2017-10-06] MEDS ORDERED: PLAVIX75 MG PO (09:56)
== END 2017-10-06 13:45 | disposition home or self-care (01) ==
LOC: D.CATH 07:20
PROVIDERS: Internal Medicine Interventional Cardiology
DX: I25.119 Atherosclerotic heart disease of native coronary artery with unspecified angina pectoris (principal); R94.30 Abnormal result of cardiovascular function study, unspecified; R06.02 Shortness of breath; F17.200 Nicotine dependence, unspecified, uncomplicated; Z01.812 Encounter for preprocedural laboratory examination

== ENCOUNTER 2017-12-14 09:42 | Inpatient (IN) | payer MEDICARE ==
[~2017-12-14] VITALS: Ht 167.6 cm; Wt 76.6 kg
--- NOTE | ~2017-12-14 | EC ---
PATIENT:KATHIA WILSON DATE OF SERVICE: 12/14/17 SEX: F MEDICAL RECORD: [id number] DATE OF : 52 LOCATION:D. D.212 AGE OF PATIENT: 67 ADMISSION DATE: 12/14/17 REFERRING PHYSICIAN: INTERPRETING PHYSICIAN: TOSIN MCGHEE MD ECHOCARDIOGRAM REPORT ECHO CHARGES 4 ECHO COMPLETE Date: 12/15 CLINICAL DIAGNOSIS: V TACH POST CATH ECHOCARDIOGRAPHIC MEASUREMENTS (adult normal given) AC root (d.<3.7cm) 4.1 cm LV Septum d (<1.2 cm> 1.6 cm Valve Excursion 1.7 cm LV Septum (systole) 1.8 cm Left Atria (s.<4.0cm> 3.5 cm LVPW d(<1.2cm) 1.9 cm RV (d.<2.3cm) 4.0 cm LVPW (sytole) 2.2 cm LV diastole(<5.6CM) 4.8 cm MV E-F(>70mm/sec) cm LV systole 2.9 cm LVOT Diameter 1.9 cm MV exc.(>10mm) cm Est.ejection fraction (50-75%) % DOPPLER: LVIT cm/sec A 94.0 cm/sec E 96.0 cm/sec LA cm/sec RVSP 43 mmHg LVOT 143 cm/sec AOP1/2T m/s Asc. Ao 166 cm/sec RVOT 88 cm/sec RA cm/sec PA 142 cm/sec AV Gradient Peak 11.07mmHg AV Mean 5.37 mmHg AV Area 2.6 cm MV Gradient Peak 4.89 mmHg MV Mean 1.92 mmHg MV Area cm COMMENTS: Overlay Plastician: Cuong SUTHERLAND Parts Designer: 2 Dr. Hill TAPE# PACS Pericardial Effusion N DATE OF SERVICE: 12/15/2017 PROCEDURE: Echocardiogram. FINDINGS: 1. Left ventricular chamber size is within normal limits. Left ventricular systolic function is normal. Overall ejection fraction estimated at 60%. 2. Left atrium is within normal limits at 3.5 cm. Right atrium and right ventricle chamber sizes are mildly dilated. 3. Valvular structures have normal structure and motion. ECHOCARDIOGRAM REPORT [id number] KATHIA WILSON 4. Doppler interrogation reveals trace mitral regurgitation, mild tricuspid regurgitation, no other valvular insufficiency or stenosis and pulmonary systolic pressure is estimated 43 mmHg. 5. No evidence of pericardial effusion or left ventricular thrombus. TRANSINT:[id number] Voice Confirmation ID: [id number] DOCUMENT ID: [id number] TOSIN MCGHEE MD at 1218 CC: [id number] DICTATION DATE: 12/15/17 1557 PRESSURE CONTROL SUPERVISOR: 12/15/17 1613 DIS IN 12/16/17 [place] [id number] [place] [id number]
--- NOTE | ~2017-12-14 | HEMODYNAMI ---
PATIENT:KATHIA WILSON MEDICAL RECORD: [id number] : 52 [facility] [id number] ADMISSION DATE: 12/14/17 Generatedon:12/15/20177:56 Patient name: KATHIA WILSON Patient #: [id number] SSN: [id number] : 1950 Date of study: 12/15/2017 Page: Of Hemodynamic Procedure Report Patient Data Patient Demographics Procedure consent was obtained First Name: KATHIA Gender: Female Last Name: KATIE : 1950 [facility] Initial: J Age: 67 year(s) Patient #: [id number] Race: SSN: [id number] Additional ID: [id number] Contact details [address]: [address] [place] [address] State: [place] City: [place] Zip code: [address] Past Medical History Allergies Allergen Reaction Date Comments Reported Other allergy 12/15/2017 Welbutrin Admission Admission Data Admission Date: 12/14/2017 Admission Time: 12:04 Room #: 2120 Procedure Procedure Types Cath Procedure Diagnostic Procedure [facility] w/Coronaries Sedation Charges Moderate Sedation up to 15 minutes Procedure Description Procedure Date Procedure Date: 12/15/2017 Procedure Start Time: 7:34 Procedure End Time: 7:56 Procedure Staff Name Function Saran Hill MD Performing Physician Paige Velázquez RT Monitor Calvin Nelson RT Scrub Raghavendra Luis RN Nurse Procedure Data Cath Procedure Fluoroscopy Diagnostic fluoroscopy Total fluoroscopy Time: 1.4 time: 1.4 min min Diagnostic fluoroscopy Total fluoroscopy dose: 498 dose: 498 mGy mGy Contrast Material Contrast Material Type Amount (ml) Isovue 370 68 Entry Location Entry Primary Successful Side Size Upsize Upsize Entry Closure Succes sful Closure Location (Fr) 1 (Fr) 2 (Fr) Remarks Device Remarks Femoral Right 5 Fr Exoseal artery Estimated blood loss: 5 ml Diagnostic catheters Device Type Used For End Catheter Placement MULTIPACK JL 4.0 5Fr Left Coronary catheter Angiography MULTIPACK 3DRC 5Fr Right Coronary catheter Angiography MULTIPACK Pigtail 5 Fr LV Angiography catheter Procedure Complications No complications Procedure Medications Medication Administration Route Dosage 0.9% NaCl I.V. 100 ml/hr Oxygen etCO2 Nasal cannula 2 l/min Heparin Flush Bag added to field 2 bags (1000units/500ml NS) Lidocaine 2% added to field 20 Versed I.V. 1 mg Fentanyl I.V. 50 mcg Fentanyl I.V. 50 mcg Hemodynamics Rest Heart Rate: 70 (bpm) Pressure Samples Time Site Value (mmHg) Purpose Heart Use Rate(bpm) 7:43 LV 135/7,16 EDP 65 Snapshots Pre Cath Intra NCS Post Cath Vital Signs Time Heart Resp SPO2 etCO2 NIBP (mmHg) Rhythm Pain Sedation Rate (ipm) (%) (mmHg) Status Level (bpm) 7:20:42 72 21 99 0 142/81(117) NSR 0 (11) 10(A) , No pain 7:25:25 67 15 99 29.3 131/74(116) NSR 0 (11) 10(A) , No pain 7:30:06 64 19 99 25.5 116/69(96) NSR 0 (11) 10(A) , No pain 7:34:42 64 16 99 32.3 118/74(104) NSR 0 (11) 10(A) , No pain 7:39:19 68 18 100 34.5 123/75(104) NSR 0 (11) 10(A) , No pain 7:43:57 66 19 99 33 117/71(100) NSR 0 (11) 10(A) , No pain 7:48:34 66 19 99 34.5 114/70(98) NSR 0 (11) 10(A) , No pain 7:53:45 64 19 98 31.5 126/73(111) NSR 0 (11) 10(A) , No pain Medications Time Medication Route Dose Verified Delivered Reason Notes Effe ctiveness by by 7:20:52 0.9% NaCl I.V. 100 Raghavendra Raghavendra Per ml/hr Janelle Luis physician RN RN 7:21:02 Oxygen etCO2 2 Raghavendra Raghavendra Per Nasal l/min Janelle Luis physician cannula RN RN 7:21:13 Heparin Flush added 2 Raghavendra Raghavendra used for Bag to bags Janelle Luis procedure (1000units/500ml field RN RN NS) 7:21:23 Lidocaine 2% added 20ml Raghavendra Raghavendra for local to vial Lorigan Lorigan anesthetic field RN RN 7:31:11 Versed I.V. 1 mg Raghavendra Raghavendra for Lorigan Lorigan sedation RN RN 7:31:19 Fentanyl I.V. 50 Raghavendra Raghavendra for mcg Lorigan Lorigan sedation RN RN 7:34:16 Fentanyl I.V. 50 Raghavendra Raghavendra for mcg Lorigan Lorigan sedation RN rn heart Log Time Note 7:05:58 Raghavendra Luis RN sent for patient. Start room use. 7:06:19 Time tracking: Regular hours (M-F 7:00 - 5:00) 7:06:23 Plan of Care:Hemodynamics will remain stable., Cardiac rhythm will remain stable., Comfort level will be maintained., Respiratory function will remain adequate., Patient/ family verbilizes understanding of procedure., Procedure tolerated without complication., Recovers from procedure without complications.. 7:16:22 Patient received from Hoppit II to CCL 1 Alert and oriented. Tansferred to table in Supine position. 7:16:23 Warm blankets applied, and tita hugger turned on for patient comfort. 7:16:23 Correct patient and procedure confirmed by team. 7:16:25 Signed procedure consent form obtained from patient. 7:16:26 ECG and BP/O2 sat monitors applied to patient. 7:19:49 Vital chart was started 7:19:52 Rhythm: sinus rhythm 7:19:53 Full Disclosure recording started 7:20:52 0.9% NaCl 100 ml/hr I.V. was administered by Raghavendra Luis RN; Per physician; 7:21:02 Oxygen 2 l/min etCO2 Nasal cannula was administered by Raghavendra Luis RN; Per physician; 7:21:13 Heparin Flush Bag (1000units/500ml NS) 2 bags added to field was administered by Raghavendra Luis RN; used for procedure; 7:21:23 Lidocaine 2% 20ml vial added to field was administered by Raghavendra Luis RN; for local anesthetic; 7:22:21 H&P Date Dictated: 12/14/2017 Within 30 days and on chart.. 7:22:22 Pre-procedure instructions explained to patient. 7:22:23 Pre-op teaching completed and patient verbalized understanding. 7:22:24 Family in waiting room. 7:22:26 Patient NPO since Midnight. 7:22:39 Patient allergic to Other allergyWelbutrin 7:22:41 Is the patient allergic to Iodine/contrast media? No. 7:22:42 Is patient on blood thinner?Yes 7:22:45 ACC The patient was administered the following blood thiners within the last 24 hours: ACCAspirin, ACCPlavix 7:22:47 Patient diabetic? Yes. 7:22:48 If diabetic: On Metformin? No 7:22:50 Previous problem with sedation/anesthesia? No ? 7:22:53 Snore? Yes 7:22:54 Sleep apnea? No 7:22:55 Deviated septum? No 7:22:56 Opens mouth fully? Yes 7:22:57 Sticks out tongue? Yes 7:22:59 Airway obstruction? No ? 7:23:03 Dentures? Yes Out 7:23:06 Pre procedure: right dorsailis pedis pulse 2+ Normal; easily identifiable; not easily obliterated 7:23:09 Patient pain scale 0/10 ?. 7:23:15 IV patent on arrival in left forearm with 0.9% NaCl at O. 7:23:18 Lab results completed and on chart. 7:23:21 Right groin area was prepped with chlora-prep and draped in sterile fashion 7:23:23 Alarms reviewed by R. N. 7:23:23 Sharps counted by scrub and verified by R.N. 7:23:26 Use device set Femoral Dx 7:23:27 ACIST Syringe (93442) opened to sterile field. 7:23:28 Bag Decanter (2002S) opened to sterile field. 7:23:28 Medline Cath Pack ([id number]) opened to sterile field. 7:23:29 DIAGNOSTIC WIRE .035 260cm J wire (763919) opened to sterile field. 7:23:30 ACIST Hand Control (62842) opened to sterile field. 7:23:31 ACIST Manifold (69735) opened to sterile field. 7:23:31 DIAGNOSTIC Multipack 5Fr catheter set (NB8426) opened to sterile field. 7:23:32 Tegaderm 4 x 4 (1626W) opened to sterile field. 7:23:32 PERCUTANEOUS ENTRY 19GA needle opened to sterile field. 7:23:33 SHEATH Prelude 5Fr 0.035 (TSC-1V-89-035) opened to sterile field. 7::42 Baseline sample Acquired. 7::42 Final Timeout: patient, procedure, and site verified with staff and physician. All members of the team are in agreement. 7:29:46 Right groin site verified by team. 7:29:50 Physical assessment completed. ASA score P 2 - A patient with mild systemic disease as per Saran Hill MD. 7:29:55 Sedation plan: IV Moderate Sedation Medication:Versed, Fentanyl 7:31:11 Versed 1 mg I.V. was administered by Raghavendra Luis RN; for sedation; 7:31:19 Fentanyl 50 mcg I.V. was administered by Raghavendra Luis RN; for sedation; 7:33:54 Zero performed for pressure channel P1 7:34:01 Procedure started. 7:34:04 Local anesthetic to right femoral artery with Lidocaine 2% by Saran Hill MD.INITIAL ACCESS ONLY 7:34:16 Fentanyl 50 mcg I.V. was administered by Raghavendra Luis RN; for sedation; 7:36:21 A 5 Fr sheath was inserted into the Right Femoral artery 7:36:59 A MULTIPACK JL 4.0 5Fr catheter was advanced over the wire and used for Left Coronary Angiography. 7:40:00 Catheter removed. 7:40:06 A MULTIPACK 3DRC 5Fr catheter was advanced over the wire and used for Right Coronary Angiography. 7:40:34 Catheter removed. 7:41:04 A MULTIPACK Pigtail 5 Fr catheter was advanced over the wire and used for LV Angiography. 7:43:09 LV gram done using DAILY 7:43:10 LV hemodynamics recorded. 7:43:13 Injector settings: Ml/sec: 10, Volume: 20, 7:43:26 EF : 40 % 7:48:15 Catheter removed. 7:48:58 EXOSEAL 5Fr (EX500) opened to sterile field. 7:49:05 Sheath removed intact; hemostasis achieved with Exoseal to the Right Femoral artery. 7:49:07 Procedure ended.(Physican Out) 7:50:29 Fluoroscopy time 01.40 minutes. 7:50:33 Fluoroscopy dose: 498 mGy 7:50:33 Flurop Dose total: 498 7:50:37 Contrast amount:Isovue 370 68ml. 7:50:39 Sharps counted by scrub and verified by R.N. 7:50:41 Insertion/operative site no bleeding no hematoma. 7:50:45 Post-op/insertion site Right Femoral artery dressed using a 4 x 4 and Tegaderm. 7:50:49 Post right femoral artery:stable, clean and dry 7:50:52 Post Procedure Pulses reassessed and unchanged 7:50:57 Post-procedure physical assessment completed. ASA score P 2 - A patient with mild systemic disease as per Saran Hill MD. 7:51:00 Post procedure rhythm: unchanged. 7:51:04 Estimated blood loss: 5 ml 7:51:06 Post procedure instruction explained to patient.Patient verbalizes understanding. 7:51:06 Patient needs reinforcement of post procedure teaching. 7:51:26 Procedure type changed to Cath procedure, Diagnostic procedure, LHC, LHC w/Coronaries, Sedation Charges, Moderate Sedation up to 15 minutes 7:51:31 Procedure Complication : No complications 7:51:33 See physician's report for complete and final results. 7:52:00 Procedure and supply charges have been captured, reviewed, submitted and are correct. 7:56:02 Vital chart was stopped 7:56:05 Report given to PCU. 7:56:10 Patient transfered to PCU with Bed. 7:56:15 Procedure ended. 7:56:15 Full Disclosure recording stopped 7:56:24 End room use (Document Last) Device Usage Item Name Manufacture Quantity Catalog Number Hospital Part Current M inimal Lot# / Charge Number Stock Stock Serial# Code ACIST Syringe Acist 1 97980 [id number] 817944 234479 2 0 (70006) [employer] Inc Bag Decanter Microtek 1 522126 77401 061590 5 () Medical Inc. Medline Cath Cardinal 1 [id number] 437231 05319 262412 5 Pack Health ([id number]) DIAGNOSTIC WIRE St Shaheed 1 366644 889494 860191 960956 3 0 .035 260cm J wire (166844) ACIST Hand Acist 1 63221 035506 781544 741436 5 Control (97972) [employer] Inc ACIST Manifold Acist 1 58943 630741 554830 525633 5 (26200) Medical Systems Inc DIAGNOSTIC Cardinal 1 QW5969 012150 71306 603424 3 0 Multipack 5Fr Health catheter set (QL6017) Tegaderm 4 x 4 3M 1 1626W 055759 237015 075761 5 (1626W) PERCUTANEOUS Cook Medical 1 [id number] 683872 673538 5 ENTRY 19GA needle SHEATH Prelude Merit 1 KGR-6V-63-035 435867 644133 137229 5 5Fr 0.035 Medical (PSD-2Z-93035) MULTIPACK JL Cardinal 1 904894 5 4.0 5Fr Health catheter MULTIPACK 3DRC Cardinal 1 127903 5 5Fr catheter Health MULTIPACK Cardinal 1 923902 5 Pigtail 5 Fr Health catheter EXOSEAL 5Fr Cardinal 1 EX500 559831 396811 537525 1 0 (EX500) Health Signature Audit [place] Stage Time Signature Unsigned Intra-Procedure 12/15/2017 Paige 7:56:35 AM Counts RT(R) Signatures Monitor : Paige Signature : Counts RT Date : Time : [address] [address]
[~2017-12-14 09:42] MED LIST changes: +NOVOLIN 70/30 110 ML SC
[2017-12-14 12:36] VITALS: BP 122/70; BMI 27.9
[2017-12-14] MEDS ORDERED: NOVOLIN 70/30 110 ML SC (12:56)
[2017-12-14] MEDS ORDERED: PROTONIX40 MG PO (12:58)
[2017-12-14] MEDS ORDERED: GABAPENTIN100 MG PO (13:00)
[2017-12-14 15:16] VITALS: BP 100/60
[2017-12-14 15:54] LABS: EOSINOPHILS 3.7 % (0-7); HEMATOCRIT 32.2 % (36.0-48.0); HEMOGLOBIN 10.3 g/dL (12-16); IMMATURE GRANULOCYTES 0.3 % (0-5); LYMPHOCYTES 20.9 % (15-50); MCH 27.6 pg (26.0-34.0); MCV 86.3 fL (80.0-100.0); MEAN PLATELET VOLUME 12.2 fL (7.4-10.4); MONOCYTES 8.8 % (2-11); NEUTROPHILS 65.3 % (40-80); PLATELET COUNT 209 10x3/uL (130-400); RBC 3.73 10x6/uL (4.00-5.40); RDW 17.3 % (11.5-14.5); WBC 6.2 10x3/uL (4.8-10.8)
[2017-12-14 16:46] LABS: ALBUMIN 2.5 g/dL (3.4-5.0); ANION GAP 10.3 mmol/L (8-16); BILIRUBIN - TOTAL 0.6 mg/dL (0.2-1.3); CALCIUM 9.1 mg/dL (8.5-10.1); CARBON DIOXIDE 30.1 mmol/L (21.0-32.0); CREATININE - SERUM 0.9 mg/dL (0.6-1.3); MAGNESIUM - SERUM 1.8 mg/dL (1.8-2.4); POTASSIUM - SERUM 4.4 mmol/L (3.5-5.1); PROTEIN - SERUM 6.5 g/dL (6.4-8.2); THYROID STIMULATING HORMONE 2.41 uIU/mL (0.36-3.74)
[2017-12-14 17:24] LABS: CKMB 7.6 U/L (0.0-3.6); CREATINE KINASE 83 UL (21-215)
[2017-12-14 20:18] VITALS: BP 113/66
[2017-12-14 20:54] LABS: CKMB 4.3 U/L (0.0-3.6); CREATINE KINASE 65 UL (21-215)
[2017-12-14 21:01] LABS: TROPONIN-I 3.922 ng/mL (0.000-0.060)
[2017-12-15 00:39] VITALS: BP 112/62
[2017-12-15 03:25] LABS: CREATINE KINASE 51 UL (21-215)
[2017-12-15 03:28] LABS: TROPONIN-I 3.695 ng/mL (0.000-0.060)
[2017-12-15 06:11] VITALS: BP 124/88
[2017-12-15 11:43] VITALS: BP 117/70
[2017-12-15 14:46] VITALS: BMI 27.1
[2017-12-15 15:36] VITALS: BP 109/64; Ht 167.6 cm; Wt 76.6 kg
[2017-12-15 16:16] LABS: % SATURATION 14 % (15-55); IRON 33 ug/dl (35-150); TOTAL IRON BIND CAPACITY 229 ug/dl (260-445); UNSAT IRON BIND CAPACITY 196 ug/dl (150-375)
[2017-12-15 20:47] VITALS: BP 108/74
[2017-12-16] VITALS: BP 133/55
[2017-12-16 05:08] VITALS: BP 126/68
[2017-12-16 07:03] LABS: EOSINOPHILS 3.4 % (0-7); HEMATOCRIT 35.5 % (36.0-48.0); HEMOGLOBIN 11.3 g/dL (12-16); IMMATURE GRANULOCYTES 0.7 % (0-5); LYMPHOCYTES 27.3 % (15-50); MCH 27.8 pg (26.0-34.0); MCHC 31.8 g/dL (31.0-37.0); MCV 87.4 fL (80.0-100.0); MEAN PLATELET VOLUME 11.4 fL (7.4-10.4); MONOCYTES 11.5 % (2-11); NEUTROPHILS 56.1 % (40-80); PLATELET COUNT 227 10x3/uL (130-400); RBC 4.06 10x6/uL (4.00-5.40); RDW 17.6 % (11.5-14.5); WBC 5.9 10x3/uL (4.8-10.8)
[2017-12-16 07:13] LABS: CALC OSMOLALITY 273 mosm/kg (275-300); CALCIUM 8.9 mg/dL (8.5-10.1); CARBON DIOXIDE 28.6 mmol/L (21.0-32.0); CHLORIDE - SERUM 104 mmol/L (98-107); CREATININE - SERUM 0.8 mg/dL (0.6-1.3); GLUCOSE 107 mg/dL (74-106); POTASSIUM - SERUM 4.3 mmol/L (3.5-5.1); SODIUM 138 mmol/L (136-145); eGFR NON AFRICAN AMERICAN 76 mL/min (90-120)
[2017-12-16 07:14] LABS: UREA NITROGEN 7 mg/dL (7-18)
[2017-12-16 08:21] VITALS: BP 112/73
[2017-12-16] MEDS ORDERED: NICODERM C1 PATCH .3 TRANSDERM (10:25)
[2017-12-16] MEDS ORDERED: PLAVIX75 MG PO (10:25)
[2017-12-16] MEDS ORDERED: COREG 3.1253.125 MG PO (10:26)
[2017-12-16 11:37] VITALS: BP 112/72
== END 2017-12-16 13:05 | disposition home or self-care (01) | DRG 281 ==
LOC: D.SDCHOLD 09:42 → D.M2 12:04
PROVIDERS: Internal Medicine Cardiovascular Disease; Internal Medicine Hematology & Oncology; Internal Medicine Nephrology
PROC: B2151ZZ Fluoroscopy of Left Heart using Low Osmolar Contrast (ICD-10-PCS; 2017-12-15)
PROC: 4A023N7 Measurement of Cardiac Sampling and Pressure, Left Heart, Percutaneous Approach (ICD-10-PCS; 2017-12-15)
PROC: B2111ZZ Fluoroscopy of Multiple Coronary Arteries using Low Osmolar Contrast (ICD-10-PCS; principal; 2017-12-15 12:30)
DX: I21.4 Non-ST elevation (NSTEMI) myocardial infarction (principal); F17.203 Nicotine dependence unspecified, with withdrawal; C15.9 Malignant neoplasm of esophagus, unspecified; I47.2 Ventricular tachycardia; J44.9 Chronic obstructive pulmonary disease, unspecified; I25.10 Atherosclerotic heart disease of native coronary artery without angina pectoris; Z95.5 Presence of coronary angioplasty implant and graft; E11.9 Type 2 diabetes mellitus without complications; E78.5 Hyperlipidemia, unspecified; I11.0 Hypertensive heart disease with heart failure; I50.9 Heart failure, unspecified; F41.9 Anxiety disorder, unspecified; F32.9 Major depressive disorder, single episode, unspecified; D63.8 Anemia in other chronic diseases classified elsewhere

== ENCOUNTER → 2017-12-29 08:39 | Outpatient (CLI) | payer MEDICARE ==
[2017-12-15 15:36] VITALS: BMI 27.1
[~2017-12-29 08:39] MED LIST changes: +COREG 3.1253.125 MG PO; +NICODERM C1 PATCH .3 TRANSDERM; +PROTONIX40 MG PO
== END | disposition home or self-care (01) ==
LOC: D.RAD 08:39
DX: R13.10 Dysphagia, unspecified (principal)

== ENCOUNTER → 2018-02-10 10:38 | Day surgery (SDC) | payer MEDICARE ==
[~2018-02-10] VITALS: Ht 167.6 cm; Wt 72.6 kg
--- NOTE | ~2018-02-10 | OP ---
PATIENT NAME: KATHIA WILSON MEDICAL RECORD: [id number] :52 LOCATION:[facility] ADMISSION DATE: SURGEON: RANDALL MOISE DO DATE OF OPERATION: 02/10/2018 PROCEDURE: EGD. INDICATION FOR PROCEDURE: History of Porter's esophagus and esophageal adenocarcinoma. The patient has been undergoing chemotherapy with poor response. She now appears to have metastatic disease based on recent PET scanning. SCOPE: Olympus video gastroscope. MEDICATIONS: Propofol 150 mg IV per anesthesia. ESTIMATED BLOOD LOSS: Less than 3 mL. COMPLICATIONS: None. FINDINGS: Informed consent was given. The patient was made comfortable with the above medication. After reaching an adequate level of sedation by slow IV push, the patient was placed on her left side. The endoscope was advanced under direct visualization through the mouth to the second portion of the duodenum. The upper esophagus appeared normal. In middle and distal esophagus, there was an infiltrating tumor, consistent with her diagnosis of esophageal adenocarcinoma. This was circumferential. It was very friable and bleeding to touch. Its location was approximately 32 cm from the incisors down to 41 cm, which is right at the GE junction. The endoscope was able to pass this site without difficulty. Retroflexion was performed to view the cardia. There was a hiatal hernia present and no obvious tumor extending downward into the visible cardia. The remainder of the stomach and visualized portions of the duodenum appeared normal. No biopsies were taken on this examination as the diagnosis has been confirmed previously and this appears more extensive than previously seen. The endoscope was withdrawn from the patient. The patient tolerated the procedure well and there were no complications. IMPRESSION: 1. Advanced esophageal adenocarcinoma located at 32-41 cm from the incisors. The tumor is circumferential and is very friable with bleeding as the endoscope was passed through the site. 2. Hiatal hernia. 3. Otherwise, no findings. PLAN AND RECOMMENDATIONS: 1. Discharge home when recovery parameters are met. 2. Continue follow up with oncology. 3. I will offer the patient an esophageal stent for palliative therapy regarding her dysphagia related to this tumor. If she wishes, she will be rescheduled for an upper endoscopy with stent placement. This will require a 15-cm stent in length or longer if available. TRANSINT:[id number] Voice Confirmation ID: [id number] DOCUMENT ID: [id number] OPERATIVE REPORT [id number] WILSON,RANDALL MORRISON DO at 1236 CC: [id number] DICTATION DATE: 02/10/18 1433 HAIR MACHINE OPERATOR: 02/10/18 1522 [facility] 02/10/18 [facility] [address] [place] [address]
[~2018-02-10 10:38] MED LIST changes: +ATIVAN1 MG PO; +CELEXA10 MG PO; +EMLA CREAM 30 G30 G1 TOPICAL
[2018-02-10 11:13] LABS: BASOPHILS 1.8 % (0-2); EOSINOPHILS 14.7 % (0-7); HEMATOCRIT 37.6 % (36.0-48.0); IMMATURE GRANULOCYTES 0.3 % (0-5); LYMPHOCYTES 26.3 % (15-50); MCH 27.4 pg (26.0-34.0); MCHC 31.9 g/dL (31.0-37.0); MCV 85.8 fL (80.0-100.0); MONOCYTES 6.9 % (2-11); PLATELET COUNT 212 10x3/uL (130-400); RBC 4.38 10x6/uL (4.00-5.40); RDW 16.7 % (11.5-14.5); WBC 7.4 10x3/uL (4.8-10.8)
[2018-02-10 12:30] LABS: ANION GAP 11.8 mmol/L (8-16); CALCIUM 8.8 mg/dL (8.5-10.1); CARBON DIOXIDE 29.9 mmol/L (21.0-32.0); POTASSIUM - SERUM 3.7 mmol/L (3.5-5.1)
[2018-02-10 13:52] VITALS: BP 135/72; Ht 167.6 cm; Wt 72.6 kg
== END | disposition home or self-care (01) ==
LOC: D.OPS 10:38
PROVIDERS: Anesthesiology
DX: C16.0 Malignant neoplasm of cardia (principal); K44.9 Diaphragmatic hernia without obstruction or gangrene

== ENCOUNTER → 2018-03-22 11:59 | Outpatient (CLI) | payer MEDICARE ==
[2018-02-10 13:52] VITALS: BMI 25.8
== END | disposition home or self-care (01) ==
LOC: D.MRI 11:59
DX: C15.5 Malignant neoplasm of lower third of esophagus (principal); R55 Syncope and collapse

== ENCOUNTER 2018-04-17 00:36 | Inpatient (IN) | payer MEDICARE ==
[~2018-04-17] VITALS: Ht 167.6 cm; Wt 65.3 kg
--- NOTE | ~2018-04-17 | CN ---
PATIENT NAME:KATHIA DELA CRUZ MEDICAL RECORD: [id number] : 52 LOCATION:[facility] ADMIT DATE: 04/17/18 ACCOUNT: [id number] CONSULTING PHYSICIAN: OLIVIA JAMES DO REFERRING PHYSICIAN: BETO TORRE MD DATE OF CONSULTATION: FAMILY PRACTICE CONSULT HISTORY OF PRESENT ILLNESS: Ms. Dela Cruz is a 67-year-old white female, patient of Dr. Torre from [place], [facility] with a known history of esophageal cancer, that was transferred here with nausea, vomiting and coughing up blood. She has been passing some dark stools. She has been seen in consultation also by GI with Dr. Pollard. She is a diabetic and has been on Lantus and Humalog. With her illness, she has lost over 100 pounds and states that she seldom has to take any insulin. Her blood sugar here was 70. She has not had to take her longacting insulin in a while. She thinks she had a recent A1c, but does not remember the number. She is followed by [facility] in [place]. She is still having difficulties with swallowing. PAST MEDICAL HISTORY: Significant for known diabetes, hypertension, congestive heart failure, coronary artery disease with previous stent, COPD, asthma, she is oxygen dependent at night, esophageal cancer, GERD, depression and anxiety. PAST SURGICAL HISTORY: Previous surgeries include a hysterectomy, cholecystectomy, carpal tunnel, bilateral stents, port placement. ALLERGIES: WELLBUTRIN. MEDICATIONS: Home medications include Plavix 75 mg a day, Coreg 3.125 b.i.d., potassium gluconate 595 daily, omeprazole 20 mg a day, Proventil updrafts, Nitrostat 0.4 p.r.n., Spiriva 1 puff daily, Tylenol p.r.n., pravastatin 80 mg a day, gabapentin 300 mg t.i.d., citalopram 10 mg a day, lorazepam 1 mg p.r.n., EMLA cream, famotidine 20 mg b.i.d., budesonide and formoterol inhaler, i.e., Symbicort b.i.d., promethazine p.r.n., furosemide 40 mg a day, Chlor-Trimeton 4 mg b.i.d., [place] 5 p.r.n. FAMILY HISTORY: Noncontributory. SOCIAL HISTORY: The patient is a smoker. REVIEW OF SYSTEMS: Significant recent nausea, vomiting, dysphagia, odynophagia, weight loss, chest pain related to eating. No changes in shortness of breath. Some left lower abdominal pain. No diarrhea or constipation. No dysuria. PHYSICAL EXAMINATION: GENERAL: Pleasant, alert, cooperative, appears chronically ill. HEENT: Sclerae nonicteric. HEART: Regular at this time. LUNGS: With good breath sounds bilaterally. ABDOMEN: Soft with some left lower quadrant tenderness. EXTREMITIES: Lower extremities reveal no edema. IMPRESSION: 1. Esophageal cancer. CONSULT REPORT [id number] KATHIA DELA CRUZ 2. Diabetes. 3. Weight loss associated with esophageal cancer and dysphagia. 4. Chronic obstructive pulmonary disease. 5. Coronary artery disease, stable. 6. Hypokalemia. PLAN: We will check blood sugars a.c. and at bedtime and low sliding scale. Check a hemoglobin A1c. I doubt if she is going to require much insulin. Started some potassium supplementation. Her potassium was 3.2. Thank you for this consult. We will follow along. TRANSINT:[id number] Voice Confirmation ID: [id number] DOCUMENT ID: [id number] OLIVIA JAMES DO at 1702 CC: [id number] DICTATION DATE: 04/17/181751 NON DESTRUCTIVE TESTING INSPECTOR: 04/17/181927 ADM IN [facility] [address] [place] [address]
--- NOTE | ~2018-04-17 | OP ---
PATIENT NAME: KATHIA WILSON MEDICAL RECORD: [id number] :52 LOCATION:[facility] ADMISSION DATE:04/17/18 SURGEON: GLORIA POWERS MD DATE OF OPERATION: 04/22/2018 SURGEON: Gloria Powers MD PREOPERATIVE DIAGNOSIS: Obstructing esophageal cancer. POSTOPERATIVE DIAGNOSIS: Obstructing esophageal cancer. PROCEDURE PERFORMED: Ward gastrostomy. ANESTHESIA: General. COMPLICATIONS: None. SPECIMENS: None. Case was clean contaminated. ESTIMATED BLOOD LOSS: 20 cc. OPERATIVE COURSE: After consent was obtained, the patient was taken to the operating room and placed in supine position on the operating room table. Next, general anesthesia was given via endotracheal intubation after a timeout was performed to confirm the correct patient and procedure. The abdomen was prepped and draped in typical sterile fashion. Local anesthetic was injected in the midline. A 4 cm incision was made with a 10-blade scalpel. Dissection continued at the level of the fascia using electrocautery. The fascia was incised using electrocautery. Peritoneum was incised using Metzenbaum scissors. The stomach was identified. It was grabbed with a Aliya clamp and delivered through the incision. A 2-0 silk sutures were used in a double pursestring fashion. Incision was made in the left upper quadrant using the 15-blade scalpel. A tonsil was used to bluntly dissect through the abdominal wall. The gastrostomy tube was grasped and delivered through the left upper quadrant incision, 18-Kazakh gastrostomy tube. A gastrotomy was made in the stomach using electrocautery. The gastrostomy tube was passed through the gastrotomy. The balloon was inflated with 10 cc of sterile saline. The pursestring sutures were tied down around the gastrostomy tube using 0 silk sutures. The 2 sutures were placed into the anterior abdominal wall at the site where the gastrostomy tube traversing the abdominal wall as well as to the anterior stomach. At the gastrostomy insertion site. The anterior stomach was then affixed to the anterior abdominal wall with the 0 silk suture. The fascia was closed with interrupted [id number] 0 Prolene sutures. Skin was reapproximated using 3-0 Stratafix, Mastisol, and Steri-Strips. At the end of the case, all needle and instrument counts were correct. No complications occurred. The patient was extubated and transferred to PACU in stable condition. TRANSINT:[id number] Voice Confirmation ID: [id number] DOCUMENT ID: [id number] OPERATIVE REPORT [id number] KATHIA WILSON JAMES J MD at 0758 CC: [id number] DICTATION DATE: 04/22/18 174 RIVET TOSSER: 04/22/18 1807 ADM IN [place] [address] [place] [address]
--- NOTE | ~2018-04-17 | CN ---
PATIENT NAME:KATHIA DELA CRUZ MEDICAL RECORD: [id number] : 52 LOCATION:[id number] ADMIT DATE: 04/17/18 ACCOUNT: [id number] CONSULTING PHYSICIAN: TOSIN MCGHEE MD REFERRING PHYSICIAN: BETO TORRE MD DATE OF CONSULTATION: 04/19/2018 DIAGNOSES: 1. Coronary artery disease. 2. Previous PTCA stent. 3. Plavix anticoagulation. 4. Hyperlipidemia. HISTORY OF PRESENT ILLNESS: Mrs. Dela Cruz now presents with esophageal cancer. She does have a history of coronary artery disease, PTCA stent in September of 2017 with a bare metal stent. We are asked to make comment on the Plavix anticoagulation. She has been stable from a cardiac standpoint with no further chest pain, chest discomfort compatible with angina. PHYSICAL EXAMINATION: GENERAL APPEARANCE: Well-nourished, well-developed, appears stated age. Level of distress, comfortable. PSYCHIATRIC: Mental status, alert, normal affect. Orientation, oriented to time, place and person. EYES: Lids and conjunctiva, noninjected. No discharge, no pallor. ENT: Lips, teeth, gums, normal dentition. Oropharynx, no cyanosis, no pallor. NECK: Carotid arteries, bilateral normal upstroke, no bruits, no thrills. JUGULAR VEINS: No jugular venous pressure or distention. CERVICAL LYMPH NODES: Nontender, nonenlarged. THYROID: Not enlarged. Nontender. No nodules. LUNGS: Respiratory effort, unlabored. CHEST: Normal curvature. No thoracic deformity. No chest wall tenderness. Percussion, resonant. Auscultation, clear. No wheezes, no rales, no rhonchi. CARDIOVASCULAR: Precordial exam, nondisplaced. No heaves or pericardial thrills. Rate and rhythm, regular. Heart sounds, normal S1, normal S2. No S3, no gallop, no rub. Systolic murmur, not heard. Diastolic murmur, not heard. EXTREMITIES: No cyanosis, no edema. Peripheral pulses, full and equal in all extremities, except as noted. No bruits appreciated. ABDOMEN: Soft, nondistended. Normal aorta. No bruit. Nontender. No masses. Liver, nontender, no hepatomegaly. Spleen, nontender, no splenomegaly. MUSCULOSKELETAL: No joint tenderness. No joint swelling. No erythema. NEUROLOGICAL: Normal gait, normal strength, normal tone. SKIN: Warm and dry. REVIEW OF SYSTEMS: The patient reports easy bruising but reports no swollen glands. The patient reports no fever, no night sweats, no significant weight gain, no significant weight loss. No significant exercise tolerance. The patient reports no dry eyes, no irritation, no vision change. Patient reports no difficulty hearing and no ear pain. Patient reports no frequent nose bleeds or nose and sinus problems. Patient reports on arm pain on exertion. No shortness of breath while lying down. No history of heart murmur. Patient reports no cough, no wheezing or coughing up blood. Patient reports no abdominal pain, no vomiting. Normal appetite. No diarrhea and not vomiting blood. No nausea and no constipation. Patient reports no incontinence. No difficulty urinating. No hematuria. No increased frequency. Patient reports CONSULT REPORT [id number] KATHIA DELA CRUZ no muscle aches. No weakness, no arthralgias, no back pain. No swelling of the extremities. Patient reports no abnormal mole, no jaundice, no rashes. Reports no loss of consciousness. No weakness and no numbness. No seizures, dizziness, or headaches. The patient reports no depression, no sleep disturbance, feeling safe in a relationship and no alcohol abuse. Patient reports on fatigue. Reports no runny nose or sinus pressure. No itching, no hives, and no frequent sneezing. OVERALL IMPRESSION: Status post bare-metal stenting in September, stable from a cardiac standpoint with no problems discontinuing Plavix at this point with no plans of restarting the Plavix in the near future. TRANSINT:[id number] Voice Confirmation ID: [id number] DOCUMENT ID: [id number] TOSIN MCGHEE MD at 1823 CC: [id number] DICTATION DATE: 04/19/18 1157 SENIOR NETWORK ADMINISTRATOR: 04/19/18 1205 [facility] [place] [id number] [place] [address]
[~2018-04-17 00:36] MED LIST changes: -ATIVAN1 MG PO; -CELEXA10 MG PO; -EMLA CREAM 30 G30 G1 TOPICAL
[2018-04-17] MEDS ORDERED: CELEXA10 MG PO (00:48)
[2018-04-17] MEDS ORDERED: ATIVAN1 MG PO (00:49)
[2018-04-17] MEDS ORDERED: EMLA CREAM 30 G30 G1 TOPICAL (00:49)
[2018-04-17 00:51] VITALS: BP 139/74; BMI 23.3
[2018-04-17 04:00] VITALS: BP 107/58
[2018-04-17 05:20] LABS: BASOPHILS 0.7 % (0-2); EOSINOPHILS 4.9 % (0-7); HEMATOCRIT 35.2 % (36.0-48.0); HEMOGLOBIN 11.3 g/dL (12-16); IMMATURE GRANULOCYTES 0.2 % (0-5); MCH 26.5 pg (26.0-34.0); MCHC 32.1 g/dL (31.0-37.0); MCV 82.6 fL (80.0-100.0); MEAN PLATELET VOLUME 11.9 fL (7.4-10.4); NEUTROPHILS 55.2 % (40-80); PLATELET COUNT 221 10x3/uL (130-400); RBC 4.26 10x6/uL (4.00-5.40); RDW 16.9 % (11.5-14.5); WBC 6.1 10x3/uL (4.8-10.8)
[2018-04-17 05:32] LABS: APTT 29.2 SECONDS (22.8-39.4); INR 1.15 (0.85-1.17); PROTIME 14.3 SECONDS (11.6-15.0)
[2018-04-17 05:54] LABS: ALBUMIN 2.7 g/dL (3.4-5.0); ALKALINE PHOSPHATASE 116 U/L (46-116); ALT (SGPT) 11 U/L (10-68); BILIRUBIN - TOTAL 0.64 mg/dL (0.2-1.3); CALC OSMOLALITY 279 mosm/kg (275-300); CARBON DIOXIDE 24.1 mmol/L (21.0-32.0); CHLORIDE - SERUM 105 mmol/L (98-107); CREATININE - SERUM 0.8 mg/dL (0.6-1.3); POTASSIUM - SERUM 3.2 mmol/L (3.5-5.1); PROTEIN - SERUM 6.8 g/dL (6.4-8.2); SODIUM 141 mmol/L (136-145); UREA NITROGEN 15 mg/dL (7-18); eGFR NON AFRICAN AMERICAN 76 mL/min (90-120)
[2018-04-17 05:55] LABS: GLUCOSE 70 mg/dL (74-106)
[2018-04-17 09:13] VITALS: BP 135/63
[2018-04-17 11:46] LABS: HEMATOCRIT 40.6 % (36.0-48.0); HEMOGLOBIN 13.1 g/dL (12-16); MCHC 32.3 g/dL (31.0-37.0); MCV 83.7 fL (80.0-100.0); MEAN PLATELET VOLUME 11.6 fL (7.4-10.4); RBC 4.85 10x6/uL (4.00-5.40); RDW 16.9 % (11.5-14.5); WBC 12.4 10x3/uL (4.8-10.8)
[2018-04-17 12:02] LABS: APTT 29.1 SECONDS (22.8-39.4); INR 1.11 (0.85-1.17); PROTIME 13.9 SECONDS (11.6-15.0)
[2018-04-17 14:46] VITALS: BMI 23.2
[2018-04-17 17:18] VITALS: BP 132/71
[2018-04-17 20:00] VITALS: BP 120/61
[2018-04-17 23:45] VITALS: BP 94/44
[2018-04-18 00:32] LABS: HEMATOCRIT 34.6 % (36.0-48.0); HEMOGLOBIN 10.9 g/dL (12-16); MCHC 31.5 g/dL (31.0-37.0); MCV 82.6 fL (80.0-100.0); MEAN PLATELET VOLUME 11.9 fL (7.4-10.4); RBC 4.19 10x6/uL (4.00-5.40); RDW 16.8 % (11.5-14.5)
[2018-04-18 04:00] VITALS: BP 105/52
[2018-04-18 09:41] VITALS: BP 105/54
[2018-04-18 12:51] LABS: ALBUMIN 2.4 g/dL (3.4-5.0); ALKALINE PHOSPHATASE 98 U/L (46-116); BILIRUBIN - TOTAL 0.52 mg/dL (0.2-1.3); CALCIUM 8.5 mg/dL (8.5-10.1); CARBON DIOXIDE 26.7 mmol/L (21.0-32.0); CHLORIDE - SERUM 103 mmol/L (98-107); CREATININE - SERUM 0.8 mg/dL (0.6-1.3); PROTEIN - SERUM 5.8 g/dL (6.4-8.2); SODIUM 137 mmol/L (136-145); UREA NITROGEN 17 mg/dL (7-18); eGFR NON AFRICAN AMERICAN 76 mL/min (90-120)
[2018-04-18 12:56] LABS: ALT (SGPT) 8 U/L (10-68); CALC OSMOLALITY 278 mosm/kg (275-300); GLUCOSE 157 mg/dL (74-106); POTASSIUM - SERUM 3.9 mmol/L (3.5-5.1)
[2018-04-18 15:53] VITALS: BP 113/64
[2018-04-18 20:23] VITALS: BP 152/68
[2018-04-19 04:00] VITALS: BP 146/77
[2018-04-19 06:49] LABS: BASOPHILS 0.6 % (0-2); HEMATOCRIT 35.7 % (36.0-48.0); HEMOGLOBIN 11.3 g/dL (12-16); IMMATURE GRANULOCYTES 0.3 % (0-5); LYMPHOCYTES 18.1 % (15-50); MCH 26.5 pg (26.0-34.0); MCHC 31.7 g/dL (31.0-37.0); MCV 83.6 fL (80.0-100.0); MEAN PLATELET VOLUME 12.1 fL (7.4-10.4); MONOCYTES 7.2 % (2-11); NEUTROPHILS 67.8 % (40-80); PLATELET COUNT 174 10x3/uL (130-400); RBC 4.27 10x6/uL (4.00-5.40); RDW 16.9 % (11.5-14.5)
[2018-04-19 07:04] LABS: ALBUMIN 2.1 g/dL (3.4-5.0); ALKALINE PHOSPHATASE 97 U/L (46-116); ALT (SGPT) 8 U/L (10-68); BILIRUBIN - TOTAL 0.51 mg/dL (0.2-1.3); CALC OSMOLALITY 270 mosm/kg (275-300); CALCIUM 8.9 mg/dL (8.5-10.1); CARBON DIOXIDE 27.4 mmol/L (21.0-32.0); CHLORIDE - SERUM 102 mmol/L (98-107); CREATININE - SERUM 0.7 mg/dL (0.6-1.3); GLUCOSE 117 mg/dL (74-106); POTASSIUM - SERUM 3.7 mmol/L (3.5-5.1); PROTEIN - SERUM 6.2 g/dL (6.4-8.2); SODIUM 135 mmol/L (136-145); UREA NITROGEN 12 mg/dL (7-18); eGFR NON AFRICAN AMERICAN 89 mL/min (90-120)
[2018-04-19 08:05] VITALS: BP 149/65
[2018-04-19 12:01] VITALS: BP 116/73
[2018-04-19 15:42] VITALS: BP 124/69
[2018-04-19 21:04] VITALS: BP 113/70
[2018-04-20 00:39] LABS: HEMOGLOBIN 10.1 g/dL (12-16); MCH 26.8 pg (26.0-34.0); MCHC 32.6 g/dL (31.0-37.0); MCV 82.2 fL (80.0-100.0); MEAN PLATELET VOLUME 11.8 fL (7.4-10.4); RBC 3.77 10x6/uL (4.00-5.40); RDW 16.8 % (11.5-14.5); WBC 8.3 10x3/uL (4.8-10.8)
[2018-04-20 04:25] VITALS: BP 125/81
[2018-04-20 04:52] LABS: BASOPHILS 0.8 % (0-2); EOSINOPHILS 8.1 % (0-7); HEMATOCRIT 32.2 % (36.0-48.0); HEMOGLOBIN 10.1 g/dL (12-16); IMMATURE GRANULOCYTES 0.2 % (0-5); LYMPHOCYTES 24.2 % (15-50); MCH 26.1 pg (26.0-34.0); MCHC 31.4 g/dL (31.0-37.0); MCV 83.2 fL (80.0-100.0); MEAN PLATELET VOLUME 11.8 fL (7.4-10.4); MONOCYTES 8.1 % (2-11); NEUTROPHILS 58.6 % (40-80); PLATELET COUNT 149 10x3/uL (130-400); RBC 3.87 10x6/uL (4.00-5.40); RDW 16.9 % (11.5-14.5)
[2018-04-20 04:58] LABS: WBC 5.9 10x3/uL (4.8-10.8)
[2018-04-20 05:10] LABS: ALKALINE PHOSPHATASE 84 U/L (46-116); ALT (SGPT) 10 U/L (10-68); CALC OSMOLALITY 277 mosm/kg (275-300); CALCIUM 8.8 mg/dL (8.5-10.1); CARBON DIOXIDE 27.7 mmol/L (21.0-32.0); CHLORIDE - SERUM 105 mmol/L (98-107); CREATININE - SERUM 0.7 mg/dL (0.6-1.3); GLUCOSE 121 mg/dL (74-106); POTASSIUM - SERUM 4.1 mmol/L (3.5-5.1); PROTEIN - SERUM 5.8 g/dL (6.4-8.2); SODIUM 139 mmol/L (136-145); UREA NITROGEN 11 mg/dL (7-18); eGFR NON AFRICAN AMERICAN 89 mL/min (90-120)
[2018-04-20 08:08] VITALS: BP 135/78
[2018-04-20 11:45] VITALS: BP 128/79
[2018-04-20 16:18] VITALS: BP 132/74
[2018-04-20 19:27] VITALS: BP 124/80
[2018-04-21 01:07] LABS: HEMATOCRIT 31.8 % (36.0-48.0); HEMOGLOBIN 10.2 g/dL (12-16); MCH 26.5 pg (26.0-34.0); MCHC 32.1 g/dL (31.0-37.0); MCV 82.6 fL (80.0-100.0); MEAN PLATELET VOLUME 12.1 fL (7.4-10.4); RBC 3.85 10x6/uL (4.00-5.40); RDW 16.8 % (11.5-14.5); WBC 4.1 10x3/uL (4.8-10.8)
[2018-04-21 04:00] VITALS: BP 135/86
[2018-04-21 05:16] LABS: BASOPHILS 0.7 % (0-2); EOSINOPHILS 8.9 % (0-7); HEMATOCRIT 32.1 % (36.0-48.0); HEMOGLOBIN 10.1 g/dL (12-16); IMMATURE GRANULOCYTES 0.2 % (0-5); LYMPHOCYTES 20.1 % (15-50); MCH 26.2 pg (26.0-34.0); MCHC 31.5 g/dL (31.0-37.0); MCV 83.2 fL (80.0-100.0); MONOCYTES 11.6 % (2-11); NEUTROPHILS 58.5 % (40-80); PLATELET COUNT 149 10x3/uL (130-400); RBC 3.86 10x6/uL (4.00-5.40); RDW 16.9 % (11.5-14.5); WBC 4.4 10x3/uL (4.8-10.8)
[2018-04-21 05:38] LABS: ALBUMIN 2.1 g/dL (3.4-5.0); ALKALINE PHOSPHATASE 88 U/L (46-116); BILIRUBIN - TOTAL 0.38 mg/dL (0.2-1.3); CALCIUM 9.1 mg/dL (8.5-10.1); CARBON DIOXIDE 28.7 mmol/L (21.0-32.0); CHLORIDE - SERUM 102 mmol/L (98-107); CREATININE - SERUM 0.6 mg/dL (0.6-1.3); GLUCOSE 125 mg/dL (74-106); POTASSIUM - SERUM 4.7 mmol/L (3.5-5.1); PROTEIN - SERUM 6.3 g/dL (6.4-8.2); SODIUM 137 mmol/L (136-145); eGFR NON AFRICAN AMERICAN > 90 mL/min (90-120)
[2018-04-21 05:45] LABS: ALT (SGPT) 7 U/L (10-68); CALC OSMOLALITY 272 mosm/kg (275-300); UREA NITROGEN 6 mg/dL (7-18)
[2018-04-21 08:51] VITALS: BP 133/81
[2018-04-21 14:52] VITALS: Ht 167.6 cm; Wt 65.3 kg
[2018-04-21 16:48] VITALS: BP 127/78
[2018-04-21 20:00] VITALS: BP 136/39
[2018-04-22 04:00] VITALS: BP 128/75
[2018-04-22 05:35] LABS: BASOPHILS 0.9 % (0-2); EOSINOPHILS 8.3 % (0-7); HEMATOCRIT 32.9 % (36.0-48.0); HEMOGLOBIN 10.4 g/dL (12-16); IMMATURE GRANULOCYTES 0.4 % (0-5); MCH 26.3 pg (26.0-34.0); MCHC 31.6 g/dL (31.0-37.0); MCV 83.3 fL (80.0-100.0); MONOCYTES 11.3 % (2-11); NEUTROPHILS 57.1 % (40-80); PLATELET COUNT 156 10x3/uL (130-400); RBC 3.95 10x6/uL (4.00-5.40); RDW 16.9 % (11.5-14.5); WBC 4.6 10x3/uL (4.8-10.8)
[2018-04-22 06:10] LABS: ALBUMIN 2.2 g/dL (3.4-5.0); ALKALINE PHOSPHATASE 91 U/L (46-116); BILIRUBIN - TOTAL 0.33 mg/dL (0.2-1.3); CALC OSMOLALITY 269 mosm/kg (275-300); CALCIUM 9.3 mg/dL (8.5-10.1); CHLORIDE - SERUM 101 mmol/L (98-107); CREATININE - SERUM 0.6 mg/dL (0.6-1.3); GLUCOSE 104 mg/dL (74-106); POTASSIUM - SERUM 4.4 mmol/L (3.5-5.1); PROTEIN - SERUM 6.4 g/dL (6.4-8.2); SODIUM 136 mmol/L (136-145); UREA NITROGEN 7 mg/dL (7-18); eGFR NON AFRICAN AMERICAN > 90 mL/min (90-120)
[2018-04-22 06:11] LABS: ALT (SGPT) 9 U/L (10-68)
[2018-04-22 10:55] VITALS: BP 104/86
[2018-04-22 13:31] VITALS: BP 120/86
[2018-04-22 18:52] VITALS: BP 140/76
[2018-04-23 04:00] VITALS: BP 125/72
[2018-04-23 06:30] LABS: ALBUMIN 2.3 g/dL (3.4-5.0); ALKALINE PHOSPHATASE 94 U/L (46-116); ALT (SGPT) 9 U/L (10-68); CALC OSMOLALITY 262 mosm/kg (275-300); CALCIUM 8.9 mg/dL (8.5-10.1); CHLORIDE - SERUM 99 mmol/L (98-107); CREATININE - SERUM 0.6 mg/dL (0.6-1.3); GLUCOSE 112 mg/dL (74-106); POTASSIUM - SERUM 4.5 mmol/L (3.5-5.1); PROTEIN - SERUM 6.2 g/dL (6.4-8.2); SODIUM 131 mmol/L (136-145); eGFR NON AFRICAN AMERICAN > 90 mL/min (90-120)
[2018-04-23 06:32] LABS: UREA NITROGEN 10 mg/dL (7-18)
[2018-04-23 06:57] LABS: BASOPHILS 0.3 % (0-2); EOSINOPHILS 4.2 % (0-7); HEMATOCRIT 32.2 % (36.0-48.0); HEMOGLOBIN 10.3 g/dL (12-16); IMMATURE GRANULOCYTES 0.3 % (0-5); LYMPHOCYTES 10.3 % (15-50); MCH 26.5 pg (26.0-34.0); MCV 82.8 fL (80.0-100.0); MEAN PLATELET VOLUME 12.5 fL (7.4-10.4); MONOCYTES 7.4 % (2-11); NEUTROPHILS 77.5 % (40-80); PLATELET COUNT 164 10x3/uL (130-400); RBC 3.89 10x6/uL (4.00-5.40); RDW 16.8 % (11.5-14.5)
[2018-04-23 07:05] LABS: WBC 7.2 10x3/uL (4.8-10.8)
[2018-04-23 08:48] VITALS: BP 121/74
[2018-04-23 12:46] VITALS: BP 112/71
== END 2018-04-23 15:09 | disposition home health service (06) | DRG 326 ==
LOC: D.MS 00:36
PROVIDERS: Family Medicine; Internal Medicine Gastroenterology; Internal Medicine Hematology & Oncology
PROC: 0DJ08ZZ Inspection of Upper Intestinal Tract, Via Natural or Artificial Opening Endoscopic (ICD-10-PCS; principal; 2018-04-21 11:30)
PROC: 0DH60UZ Insertion of Feeding Device into Stomach, Open Approach (ICD-10-PCS; 2018-04-22)
DX: C16.0 Malignant neoplasm of cardia (principal); E43 Unspecified severe protein-calorie malnutrition; K92.0 Hematemesis; E11.40 Type 2 diabetes mellitus with diabetic neuropathy, unspecified; Z79.4 Long term (current) use of insulin; E86.0 Dehydration; F17.200 Nicotine dependence, unspecified, uncomplicated; Z79.02 Long term (current) use of antithrombotics/antiplatelets; D50.9 Iron deficiency anemia, unspecified; I25.10 Atherosclerotic heart disease of native coronary artery without angina pectoris; J44.9 Chronic obstructive pulmonary disease, unspecified; Z99.81 Dependence on supplemental oxygen; E78.5 Hyperlipidemia, unspecified; F41.8 Other specified anxiety disorders; R13.10 Dysphagia, unspecified; R63.4 Abnormal weight loss; Z68.23 Body mass index [BMI] 23.0-23.9, adult; Z95.5 Presence of coronary angioplasty implant and graft; I11.0 Hypertensive heart disease with heart failure; I50.9 Heart failure, unspecified; K21.9 Gastro-esophageal reflux disease without esophagitis

== ENCOUNTER 2018-05-06 10:29 | Inpatient (IN) | payer MEDICARE ==
[2018-05-06] VITALS (13 sets, daily range): BP systolic 103–128; BP diastolic 65–79; BMI 21.3
[~2018-05-06] VITALS: Ht 167.6 cm; Wt 60.1 kg
[~2018-05-06 10:29] MED LIST changes: +ATIVAN1 MG PO; +CELEXA10 MG PO; +EMLA CREAM 30 G30 G1 TOPICAL
[2018-05-06 11:09] LABS: BASOPHILS 0.9 % (0-2); EOSINOPHILS 3.1 % (0-7); HEMATOCRIT 35.9 % (36.0-48.0); HEMOGLOBIN 11.5 g/dL (12-16); IMMATURE GRANULOCYTES 0.3 % (0-5); LYMPHOCYTES 19.3 % (15-50); MCH 26.7 pg (26.0-34.0); MCV 83.3 fL (80.0-100.0); MEAN PLATELET VOLUME 12.2 fL (7.4-10.4); MONOCYTES 7.3 % (2-11); NEUTROPHILS 69.1 % (40-80); RBC 4.31 10x6/uL (4.00-5.40); RDW 18.1 % (11.5-14.5); WBC 10.2 10x3/uL (4.8-10.8)
[2018-05-06 11:15] LABS: PLATELET COUNT 257 10x3/uL (130-400)
[2018-05-06 11:30] LABS: ANION GAP 13.7 mmol/L (8-16); BILIRUBIN - TOTAL 0.49 mg/dL (0.2-1.3); CALCIUM 9.9 mg/dL (8.5-10.1); INR 1.06 (0.85-1.17); POTASSIUM - SERUM 3.7 mmol/L (3.5-5.1); PROTEIN - SERUM 7.3 g/dL (6.4-8.2); PROTIME 13.4 SECONDS (11.6-15.0)
[2018-05-06 16:53] LABS: HEMATOCRIT 33.7 % (36.0-48.0); HEMOGLOBIN 10.8 g/dL (12-16)
[2018-05-06 23:35] LABS: HEMATOCRIT 34.3 % (36.0-48.0); HEMOGLOBIN 10.8 g/dL (12-16)
[2018-05-07] VITALS (10 sets, daily range): BP systolic 96–116; BP diastolic 57–76; Ht 167.6 cm; Wt 60.1 kg
[2018-05-07 03:49] LABS: BASOPHILS 0.7 % (0-2); EOSINOPHILS 6.8 % (0-7); HEMATOCRIT 35.5 % (36.0-48.0); HEMOGLOBIN 11.2 g/dL (12-16); IMMATURE GRANULOCYTES 0.2 % (0-5); LYMPHOCYTES 21.7 % (15-50); MCH 26.9 pg (26.0-34.0); MCHC 31.5 g/dL (31.0-37.0); MEAN PLATELET VOLUME 11.8 fL (7.4-10.4); MONOCYTES 8.2 % (2-11); NEUTROPHILS 62.4 % (40-80); RBC 4.16 10x6/uL (4.00-5.40); RDW 18.3 % (11.5-14.5); WBC 8.9 10x3/uL (4.8-10.8)
[2018-05-07 03:53] LABS: MCV 85.3 fL (80.0-100.0); PLATELET COUNT 191 10x3/uL (130-400)
[2018-05-07 04:01] LABS: ANION GAP 9.9 mmol/L (8-16); CALCIUM 9.7 mg/dL (8.5-10.1); CARBON DIOXIDE 31.3 mmol/L (21.0-32.0); POTASSIUM - SERUM 4.2 mmol/L (3.5-5.1)
[2018-05-07] MEDS ORDERED: PROTONIX40 MG PO (09:29)
== END 2018-05-07 10:22 | disposition home or self-care (01) | DRG 378 ==
LOC: D.ER 10:29 → D.EDHOLD 12:20 → D.ICU 12:32
PROVIDERS: Family Medicine; Internal Medicine Nephrology
DX: K92.2 Gastrointestinal hemorrhage, unspecified (principal); C16.0 Malignant neoplasm of cardia; E11.40 Type 2 diabetes mellitus with diabetic neuropathy, unspecified; E78.5 Hyperlipidemia, unspecified; I10 Essential (primary) hypertension; F17.200 Nicotine dependence, unspecified, uncomplicated

== ENCOUNTER → 2018-05-10 11:11 | Outpatient (CLI) | payer MEDICARE ==
[2018-05-07 09:28] VITALS: BMI 21.3
[2018-05-10 11:19] LABS: ALBUMIN 2.7 g/dL (3.4-5.0); ANION GAP 13.3 mmol/L (8-16); BILIRUBIN - TOTAL 0.58 mg/dL (0.2-1.3); CALCIUM 9.1 mg/dL (8.5-10.1); CARBON DIOXIDE 28.8 mmol/L (21.0-32.0); CREATININE - SERUM 1.1 mg/dL (0.6-1.3); POTASSIUM - SERUM 4.1 mmol/L (3.5-5.1); PROTEIN - SERUM 6.7 g/dL (6.4-8.2)
== END | disposition home or self-care (01) ==
LOC: D.LABREF 11:11
PROVIDERS: Internal Medicine Hematology & Oncology
DX: C15.5 Malignant neoplasm of lower third of esophagus (principal); C15.9 Malignant neoplasm of esophagus, unspecified

== ENCOUNTER 2018-05-17 10:23 | Emergency (ER) | payer MEDICARE ==
[~2018-05-17] VITALS: Ht 167.6 cm; Wt 59.0 kg
[2018-05-17 10:47] VITALS: Ht 167.6 cm; Wt 59.0 kg
[2018-05-17 11:41] VITALS: BP 106/61
== END 2018-05-17 11:42 | disposition home or self-care (01) ==
LOC: D.ER 10:23
DX: R07.89 Other chest pain (principal); M25.512 Pain in left shoulder; M25.511 Pain in right shoulder; M54.2 Cervicalgia

== ENCOUNTER 2018-05-24 12:10 | Emergency (ER) | payer MEDICARE ==
[~2018-05-24] VITALS: Ht 167.6 cm; Wt 60.0 kg
[2018-05-24 12:16] VITALS: Ht 167.6 cm; Wt 60.0 kg
[2018-05-24 12:53] LABS: BASOPHILS 0.5 % (0-2); EOSINOPHILS 1.2 % (0-7); HEMATOCRIT 31.8 % (36.0-48.0); HEMOGLOBIN 10.2 g/dL (12-16); IMMATURE GRANULOCYTES 1.8 % (0-5); LYMPHOCYTES 13.6 % (15-50); MCHC 32.1 g/dL (31.0-37.0); MCV 84.1 fL (80.0-100.0); MEAN PLATELET VOLUME 11.1 fL (7.4-10.4); MONOCYTES 3.7 % (2-11); NEUTROPHILS 79.2 % (40-80); PLATELET COUNT 191 10x3/uL (130-400); RBC 3.78 10x6/uL (4.00-5.40); RDW 18.4 % (11.5-14.5); WBC 4.3 10x3/uL (4.8-10.8)
[2018-05-24 13:07] LABS: ALBUMIN 2.3 g/dL (3.4-5.0); ALKALINE PHOSPHATASE 95 U/L (46-116); ALT (SGPT) 8 U/L (10-68); BILIRUBIN - TOTAL 0.47 mg/dL (0.2-1.3); CALC OSMOLALITY 270 mosm/kg (275-300); CALCIUM 8.7 mg/dL (8.5-10.1); CARBON DIOXIDE 26.7 mmol/L (21.0-32.0); CHLORIDE - SERUM 102 mmol/L (98-107); CREATININE - SERUM 0.8 mg/dL (0.6-1.3); GLUCOSE 102 mg/dL (74-106); POTASSIUM - SERUM 4.1 mmol/L (3.5-5.1); PROTEIN - SERUM 6.8 g/dL (6.4-8.2); SODIUM 136 mmol/L (136-145); UREA NITROGEN 11 mg/dL (7-18); eGFR NON AFRICAN AMERICAN 76 mL/min (90-120)
[2018-05-24 13:21] LABS: CKMB 0.3 U/L (0.0-3.6); CREATINE KINASE 8 UL (21-215); MAGNESIUM - SERUM 1.9 mg/dL (1.8-2.4); PRO BNP 255 pg/mL (0-125); TROPONIN-I < 0.017 ng/mL (0.000-0.060)
[2018-05-24 17:49] VITALS: BP 124/74
== END 2018-05-24 17:55 | disposition home or self-care (01) ==
LOC: D.ER 12:10
PROVIDERS: Emergency Medicine
DX: R07.9 Chest pain, unspecified (principal); C15.9 Malignant neoplasm of esophagus, unspecified